=== PATIENT | female | born 1965 | race Caucasian/White ===

== ENCOUNTER 2018-11-30 17:37 | Emergency (ER) | payer OTHER, SELFPAY ==
[2018-11-30 17:43] VITALS: BP 119/85; PULSE 98; RESP 15; TEMP 36.4; O2SAT 96; BMI 31.2
--- NOTE | 2018-11-30 17:46 | DI.RAD.S_ITS ---
PROCEDURE: XR WRIST RT MIN 3V INDICATIONS: pain after fall 10 days ago TECHNIQUE: 3 views of the wrist were acquired. COMPARISON: None. FINDINGS: Bones: No fractures or dislocations. No suspicious bony lesions. Soft tissues: No suspicious soft tissue calcifications. IMPRESSION: No acute radiographic findings. If pain persists, consider advanced imaging with CT or MRI. Dictated by: Isa Velazquez M.D. on 11/30/2018 at 18:16 Approved by: Isa Velazquez M.D. on 11/30/2018 at 18:16
--- NOTE | 2018-11-30 17:46 | DI.RAD.S_ITS ---
PROCEDURE: XR FOREARM RT 2V INDICATIONS: pain after fall 10 days ago TECHNIQUE: 2 views of the forearm were acquired. COMPARISON: None. FINDINGS: Bones: No fractures or dislocations. No suspicious bony lesions. Soft tissues: No suspicious soft tissue calcifications or masses. IMPRESSION: No acute radiographic findings. If pain persists, consider advanced imaging with CT or MRI. Dictated by: Isa Velazquez M.D. on 11/30/2018 at 18:15 Approved by: Isa Velazquez M.D. on 11/30/2018 at 18:15
--- NOTE | 2018-11-30 18:10 | PC.NURSE ---
pt given pillow to rest arm on, refused ice pack
--- NOTE | 2018-11-30 19:09 | ED_ITS ---
HPI - Extremity Injury (Upper) <SUNITA Mccollum - Last Filed: 11/30/18 22:47> General Chief Complaint: Extremity Injury, Upper Stated Complaint: RT ARM PAIN Time Seen by Provider: 11/30/18 18:51 Source: patient Mode of arrival: ambulatory Limitations: no limitations History of Present Illness HPI narrative: This is a 53-year-old female, smoker, who presents with family member with chief complaint of right wrist and forearm pain with mild swelling. She reports she had a taken a mechanical fall about 10 days ago in outdoor and had FOOSH. Patient reports pain increases with flexion and extension of her wrist. She reports is able to move her fingers. Denies tingling or numbness to her right hand. Patient thought pain will improve as time goes by so did not seek medical attention immediately. The patient and family member are traveling with and they are from [place]. Patient reports will return to home in [facility] in about a month. Patient reports she does not do well hydrocodone or trauma tall in the past. Related Data Previous Rx's Medication Instructions Recorded oxycodone-acetaminophen [Percocet] 2 tab PO Q6H PRN #10 tab 11/30/18 Allergies Allergy/AdvReac Type Severity Reaction Status Date / Time Sulfa (Sulfonamide Allergy Verified 11/30/18 17:43 Antibiotics) Review of Systems <SUNITA Mccollum - Last Filed: 11/30/18 22:47> Review of Systems ROS Unobtainable: All systems reviewed & are unremarkable except as noted in HPI and below PFSH <SUNITA Mccollum - Last Filed: 11/30/18 22:47> Social History Smoking Status: Current every day smoker Social History Smoking Status: Current every day smoker Exam <SUNITA Mccollum - Last Filed: 11/30/18 22:47> Narrative Exam Narrative: General appearance: well developed, well nourished, in no acute distress. Head: normocephalic, atraumatic, no scalp lesions, non-tender. Eye: pupil equal, round. EOMI. Nose: nares patent. Oral: mucosa moist. Neck/Thyroid: neck supple, full range of motion, no visible masses. Skin: A dry scab on right dorsal hand. no suspicious rashes, lesions over visible areas. Warm and dry. Heart: no clubbing, no cyanosis, no edema. Lungs: Breathing even and unlabored. No stridor. No accessory muscles used. Chest: normal shape and expansion. Abdomen: non-obese, non-distended. Neurologic: alert and oriented. Cognitive exam, [employer] [place] and PNS grossly intact on informal exam. Psych: good eye contact, normal affect. Initial Vital Signs Initial Vital Signs: Vital Signs Temperature 97.6 F 11/30/18 17:43 Pulse Rate 98 H 11/30/18 17:43 Respiratory Rate 15 11/30/18 17:43 Blood Pressure 119/85 11/30/18 17:43 Pulse Oximetry 96 11/30/18 17:43 Extrem Right upper extremity: wrist Details: normal to inspection, tenderness, abnormal ROM Details: pain with active ROM during, pain with passive ROM during and with range as follows, normal vascular exam, radial pulse present and ulnar pulse present; no ecchymosis and no deformity and hand Details: normal to inspection, neuromotor exam abnormal Details: wrist extension abnormal Details: limited by pain, neurosensory exam normal, tenderness and normal ROM of fingers Left upper extremity: normal to inspection and full ROM Right lower extremity: normal to inspection and full ROM Left lower extremity: normal to inspection and full ROM <Yamilka Gutierrez DO - Last Filed: 12/01/18 00:56> Initial Vital Signs Initial Vital Signs: Vital Signs Temperature 97.6 F 11/30/18 17:43 Pulse Rate 98 H 11/30/18 17:43 Respiratory Rate 15 11/30/18 17:43 Blood Pressure 119/85 11/30/18 17:43 Pulse Oximetry 96 11/30/18 17:43 Procedures <SUNITA Mccollum - Last Filed: 11/30/18 22:47> Orthopedic Splinting/Casting Injury #1: Side: right Upper Extremity Injury Location: wrist Upper Extremity Immobilizer: thumb spica (prefabricated) Post splinting neuro exam: intact Post splinting vascular exam: intact Placed by: Nursing Course <SUNITA Mccollum - Last Filed: 11/30/18 22:47> Orders Ordered: ED Orders 11/30/18 17:46 XR forearm RT 2V Stat XR wrist RT min 3V Stat Vital Signs Vital signs: Vital Signs - 8 hr 11/30/18 17:43 11/30/18 19:34 Temperature 97.6 F Pulse Rate 98 H 68 Respiratory Rate 15 16 Blood Pressure 119/85 120/82 Pulse Oximetry 96 98 <Yamilka Gutierrez DO - Last Filed: 12/01/18 00:56> Orders Ordered: ED Orders 11/30/18 17:46 XR forearm RT 2V Stat XR wrist RT min 3V Stat Vital Signs Vital signs: Vital Signs - 8 hr 11/30/18 17:43 11/30/18 19:34 Temperature 97.6 F Pulse Rate 98 H 68 Respiratory Rate 15 16 Blood Pressure 119/85 120/82 Pulse Oximetry 96 98 MDM - Extremity Injury (Upper) <SUNITA Mccollum - Last Filed: 11/30/18 22:47> Differential Diagnosis Differential diagnosis: Likely sprain and strain of wrist and fracture of wrist Medical Records Attestation: I reviewed the patient's medical records. Imaging Data XR-Wrist RT: Radiologist's impression: [address] [address] XRay Report Signed Patient: RENAY GONZALEZ LMR#: [id number] : 1965Acct:[id number] Age/Sex: 53 / FDate of Service: 11/30/18 Loc: ED Accession Number: [id number] Procedure: XR wrist RT min 3V Ordering Provider: Tara Hamilton MD PROCEDURE: XR WRIST RT MIN 3V INDICATIONS: pain after fall 10 days ago TECHNIQUE: 3 views of the wrist were acquired. COMPARISON: None. FINDINGS: Bones: No fractures or dislocations. No suspicious bony lesions. Soft tissues: No suspicious soft tissue calcifications. IMPRESSION: No acute radiographic findings. If pain persists, consider advanced imaging with CT or MRI. Dictated by: Isa Velazquez M.D. on 11/30/2018 at 18:16 Approved by: Isa Velazquez M.D. on 11/30/2018 at 18:16 XR-FA RT: Radiologist's impression: [address] [address] XRay Report Signed Patient: RENAY GONZALEZ LMR#: [id number] : 1965Acct:[id number] Age/Sex: 53 / FDate of Service: 11/30/18 Loc: ED Accession Number: [id number] Procedure: XR forearm RT 2V Ordering Provider: Tara Hamilton MD PROCEDURE: XR FOREARM RT 2V INDICATIONS: pain after fall 10 days ago TECHNIQUE: 2 views of the forearm were acquired. COMPARISON: None. FINDINGS: Bones: No fractures or dislocations. No suspicious bony lesions. Soft tissues: No suspicious soft tissue calcifications or masses. IMPRESSION: No acute radiographic findings. If pain persists, consider advanced imaging with CT or MRI. Dictated by: Isa Velazquez M.D. on 11/30/2018 at 18:15 Approved by: Isa Velazquez M.D. on 11/30/2018 at 18:15 [facility] Narrative Medical decision making narrative: The patient reports had sustained a mechanical fall 10 days ago after fell on out stretched hand and since then she has been having right wrist and forearm pain with movements. Patient denies injuring other areas. She did not exhibit any neurovascular deficit. X-ray on right wrist and forearm were obtained and shows no acute findings such as fracture or dislocation. Patient reports she has been using pknz-khe-mikcqly ibuprofen and Tylenol every 4 hours as needed but the pain has not been controlled effectively. Patient reports she does not route react well to hydrocodone and tramadol in the past after surgeries. Patient advised to continue to use Tylenol and or Motrin as needed mainly use prefabricated splint on affected hand to prevent flexion or extension motion on affected wrist to prevent pain. Patient provided with Percocet for severe pain at night and to take 1 tab as needed and not to mix with additional Tylenol when she takes this. Narcotic pain medication precautions were discussed with the patient and patient verbalized understanding. Patient advised to follow up with primary care physician if her pain persists with additional imaging test and further evaluation. Return precautions were discussed with the patient and patient did agrees with treatment plan. No further questions were expressed at this time. Discharge Plan Departure Patient Disposition: Home Clinical Impression: Sprain and strain of wrist Clinical Impression: (Ruled Out): Fracture of humerus Discharge Date/Time: 11/30/18 19:36 Instructions: DI for Wrist Sprain Activity Restrictions/Additional Instructions: You have been diagnosed with [right wrist and forearm sprain. Your x-ray test does not show any acute findings such as fracture or dislocation. However if you're pain persists, your primary provider could arrange for further imaging test when you return your home]. What to do: *Take your medications as directed. The Percocet can cause drowsiness. Please do not take alcohol with that, drive, operate heavy equipment. Also he can cause constipation so please take high-fiber diet or [id number]-[id number] stool softener. The Percocet contains regular strength of Tylenol already. Please use ?RICE? therapy such as Rest, Ice, Compression/Spliint/Acewra, and Elevation above the chest level. Please try to avoid getting swelling to the affected site since this may cause increasing pain. You could use OTC Tylenol and or Ibuprofen as needed for pain. Please monitor for increasing pain, swelling, tingling/numbness, unable to move affected/below the injury site, cool limbs. *Follow up with your primary care provider in 2-3 days, call for an appointment. Let them know you were seen in the ED and that we asked you to be seen in follow up. *Return to ED if you have any new, worsening, or concerning symptoms, such as [tingling/numbness, weakness to lower limb, severe pain, chest pain, breathing difficulty, unable to tolerate fluids, or any other acute concerns]. Prescriptions: New oxycodone-acetaminophen [Percocet] 5-325 mg tablet 2 tab PO Q6H PRN (Reason: pain) Qty: 10 RF: 0 Referrals: [facility] [Outside] (Walk in clinic)
[2018-11-30 19:34] VITALS: BP 120/82; PULSE 68; RESP 16; O2SAT 98
== END 2018-11-30 19:36 | disposition home or self-care (01) ==
PROVIDERS: Emergency Provider Nurse Practitioner Family
DX: S63.501A Unspecified sprain of right wrist, initial encounter (principal); S66.911A Strain of unspecified muscle, fascia and tendon at wrist and hand level, right hand, initial encounter; W19.XXXA Unspecified fall, initial encounter
CPT/HCPCS: 29280; 73090; 73110; 99282; 99283

== ENCOUNTER 2019-08-23 12:46 | Emergency (ER) | payer SELFPAY ==
[2019-08-23 13:01] VITALS: BP 159/75; PULSE 79; RESP 16; TEMP 36.9; O2SAT 96; BMI 29.2
--- NOTE | 2019-08-23 13:05 | DI.RAD.S_ITS ---
PROCEDURE: XR HAND RT MIN 3V INDICATIONS: pain after hitting with box. TECHNIQUE: 3 views of the hand(s) acquired. COMPARISON: None. FINDINGS: Bones: No fractures or dislocations. Carpal bones are normally aligned. No suspicious bony lesions. Soft tissues: No suspicious soft tissue calcifications. IMPRESSION: No fracture found. Dictated by: Vinh Hernandez M.D. on 08/23/2019 at 13:55 Approved by: Vinh Hernandez M.D. on 08/23/2019 at 13:56
--- NOTE | 2019-08-23 13:10 | ED.UPPEXIN ---
HPI - Extremity Injury (Upper) <TAIWO Pinto - Last Filed: 08/23/19 14:56> General Chief Complaint: Extremity Injury, Upper Stated Complaint: Jammed right Hand while moving. Time Seen by Provider: 08/23/19 12:47 Source: patient Mode of arrival: Ambulatory Limitations: no limitations History of Present Illness HPI narrative: The patient is a 54-year-old female current smoker with history of diabetes who presents with a chief complaint of right finger hand and wrist pain. She states that she was lifting heavy boxes to help move approximately 1 week ago with 1 fell and jammed her right middle finger. Since then the pain has been getting worse and radiates down to her wrist. It is worse with movement. The patient states that she can flex or extend her fingers, while she is making fist with that hand. He has been using ibuprofen and Tylenol for pain, but states it is not helping. She started this 2 days ago. Prior she was just using Tylenol. She is not immobilized her wrist. She applied ice for the 1st day or so, but has not since. She is right-hand dominant. Denies any previous injuries to her right hand or wrist emergency department visit for right wrist and forearm pain in November of 2018. Related Data Previous Rx's Medication Instructions Recorded oxycodone-acetaminophen [Percocet] 2 tab PO Q6H PRN #10 tab 11/30/18 tramadol 50 mg PO Q8H PRN #7 tab 08/23/19 Allergies Allergy/AdvReac Type Severity Reaction Status Date / Time Sulfa (Sulfonamide Allergy Verified 08/23/19 13:01 Antibiotics) Review of Systems <TAIWO Pinto - Last Filed: 08/23/19 14:56> Review of Systems Narrative: GENERAL: Denies chills, fatigue, malaise, fever, sweats. HEENT: Denies sinus pain, ear pain, sore throat, difficulty swallowing, dizziness. RESPIRATORY: Denies dyspnea, cough, wheezing, hemoptysis, sputum. CARDIOVASCULAR: Denies chest pain, palpitations, orthopnea, edema, GASTROINTESTINAL: Denies nausea, vomiting, abdominal pain, diarrhea, constipation, melena. : Denies dysuria, frequency, incontinence, hematuria, urinary retention. MUSCULOSKELETAL: See HPI SKIN: Denies rash, skin lesions, or other NEUROLOGIC: Denies weakness, headache, numbness, change in speech, confusion, seizures, incoordination. PSYCHIATRIC: No concerning psychosocial issues. 12 point review of systems is negative except for those stated above Patient History <TAIWO Pinto - Last Filed: 08/23/19 14:56> Social History Smoking Status: Current every day smoker Smoking Status: Current every day smoker alcohol intake frequency: holidays/special occasions only Substance Use Type: does not use Exam <TAIWO Pinto - Last Filed: 08/23/19 14:56> Narrative Exam Narrative: GENERAL: This is a well-nourished, well-developed patient, in no acute distress HEAD: Atraumatic. Normocephalic. No temporal or scalp tenderness. EYES: Pupils equal round and reactive. Extraocular motions intact. No scleral icterus. No injection or drainage. ENT: Nose without bleeding, purulent drainage or septal hematoma. Throat without erythema, tonsillar hypertrophy or exudate. Uvula midline. Airway patent. NECK: Trachea midline. No JVD or lymphadenopathy. Supple, nontender, no meningeal signs. CARDIOVASCULAR: Regular rate and rhythm RESPIRATORY: No cough. No increased respiratory effort. No accessory muscle use. EXTREMITIES: Pain to palpation noted right middle finger. Able to flex and extend right middle finger fully. For refill less than 2 seconds. Positive right radial pulse. Able to flex and extend right wrist. No pain to snuffbox palpation right. BACK: Nontender without deformity or crepitance. No flank tenderness. NEURO: AOx3. SKIN: No rash or erythema on visible skin Initial Vital Signs Initial Vital Signs: Vital Signs Temperature 98.5 F 08/23/19 13:01 Pulse Rate 79 08/23/19 13:01 Respiratory Rate 16 08/23/19 13:01 Blood Pressure 159/75 H 08/23/19 13:01 Pulse Oximetry 96 08/23/19 13:01 <Rahul Esposito DO - Last Filed: 08/23/19 15:17> Initial Vital Signs Initial Vital Signs: Vital Signs Temperature 98.5 F 08/23/19 13:01 Pulse Rate 79 08/23/19 13:01 Respiratory Rate 16 08/23/19 13:01 Blood Pressure 159/75 H 08/23/19 13:01 Pulse Oximetry 96 08/23/19 13:01 Procedures <TAIWO Pinto - Last Filed: 08/23/19 14:56> Orthopedic Splinting/Casting Injury #1: Side: right Upper Extremity Injury Location: wrist and hand Upper Extremity Immobilizer: finger (other) and Negrito wrap Post splinting neuro exam: intact Post splinting vascular exam: intact Placed by: Nursing Course <TAIWO Pinto - Last Filed: 08/23/19 14:56> Orders Ordered: ED Orders 08/23/19 13:05 XR hand RT min 3V Stat Vital Signs Vital signs: Vital Signs - 8 hr 08/23/19 13:01 08/23/19 14:31 Temperature 98.5 F Pulse Rate 79 71 Respiratory Rate 16 18 Blood Pressure 159/75 H Blood Pressure [Left Arm] 108/67 Pulse Oximetry 96 94 <Rahul Esposito DO - Last Filed: 08/23/19 15:17> Orders Ordered: ED Orders 08/23/19 13:05 XR hand RT min 3V Stat Vital Signs Vital signs: Vital Signs - 8 hr 08/23/19 13:01 08/23/19 14:31 Temperature 98.5 F Pulse Rate 79 71 Respiratory Rate 16 18 Blood Pressure 159/75 H Blood Pressure [Left Arm] 108/67 Pulse Oximetry 96 94 MDM - Extremity Injury (Upper) <TAIWO Pinto - Last Filed: 08/23/19 14:56> Differential Diagnosis Differential diagnosis: Likely sprain and strain of wrist, fracture of wrist, finger sprain and fracture of hand Imaging Data Extremity x-ray #1: Radiologist's Impression: [address] [address] XRay Report Signed Patient: Kathie Perkins LMR#: [id number] : 1965Acct:[id number] Age/Sex: 54 / FDate of Service: 08/23/19 Loc: ED Accession Number: [id number] Procedure: XR hand RT min 3V Ordering Provider: Kate Chiang PROCEDURE: XR HAND RT MIN 3V INDICATIONS: pain after hitting with box. TECHNIQUE: 3 views of the hand(s) acquired. COMPARISON: None. FINDINGS: Bones: No fractures or dislocations. Carpal bones are normally aligned. No suspicious bony lesions. Soft tissues: No suspicious soft tissue calcifications. IMPRESSION: No fracture found. Dictated by: Vinh Hernandez M.D. on 08/23/2019 at 13:55 Approved by: Vinh Hernandez M.D. on 08/23/2019 at 13:56 [facility] Narrative Medical decision making narrative: The patient is a 54-year-old female who presents with a chief complaint of right middle finger and wrist pain after jamming it on a box while moving last week. She is neurovascularly intact her stay in the emergency department. X-ray shows no acute fractures. She has reassuring range of motion. I discussed at length rest ice compression elevation, gave her small prescription of tramadol, encouraged continued itdk-tfm-sspuldk measures. Discussed at length follow up with primary care provider, risk of occult fracture and coming back to the emergency department for any acute concerns such as decreased circulation. Patient and have no questions or concerns upon discharge and state understanding of return precautions as well as follow-up care. Discharge Plan Departure Patient Disposition: Home Clinical Impression: Sprain and strain of wrist Finger sprain Qualifiers: Encounter type: initial encounter Finger: middle finger Sprain of finger site: unspecified site Laterality: right Qualified Code(s): S63.612A - Unspecified sprain of right middle finger, initial encounter Discharge Date/Time: 08/23/19 14:47 Instructions: DI for Wrist Sprain, DI for Finger Sprain Activity Restrictions/Additional Instructions: As I discussed, your x-ray shows no acute fracture. This does not rule out a soft tissue injury such as a ligament or tendon injury. It is important that you follow up with primary care provider, especially if worsening or no improvement. There can be fractures that did not show up on initial x-ray. Please use rest ice compression elevation I [facility] You have been prescribed narcotic medications. While on these medications you cannot drive or operate heavy machinery. Additionally you cannot sign legal documents or perform any duties such as this. 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 Please come back to the emergency department for any acute concerns Prescriptions: New tramadol 50 mg tablet 50 mg PO Q8H PRN (Reason: pain) Qty: 7 RF: 0 No Action oxycodone-acetaminophen [Percocet] 5-325 mg tablet 2 tab PO Q6H PRN (Reason: pain) Qty: 10 RF: 0 Referrals: [facility] [Outside] <Rahul Esposito, DO - Last Filed: 08/23/19 15:17> Cosign ED Attending Cosignature Attestation: Dr Esposito Co-Sign Statement: I was available for consultation during this patient's emergency department visit. This chart is signed by myself for administrative purposes only. I did not have direct contact with this patient during this visit. They were seen independently by the APC.
[2019-08-23 14:31] VITALS: BP 108/67; PULSE 71; RESP 18; O2SAT 94
== END 2019-08-23 14:47 | disposition home or self-care (01) ==
PROVIDERS: Emergency Provider Nurse Practitioner Family
DX: S63.501A Unspecified sprain of right wrist, initial encounter (principal); S66.912A Strain of unspecified muscle, fascia and tendon at wrist and hand level, left hand, initial encounter; S63.612A Unspecified sprain of right middle finger, initial encounter; X50.0XXA Overexertion from strenuous movement or load, initial encounter
CPT/HCPCS: 73130; 99283

== ENCOUNTER 2020-11-09 23:00 | Emergency (ER) | payer OTHER, SELFPAY ==
[2020-11-09 23:12] VITALS: BP 126/59; PULSE 74; RESP 18; TEMP 37.1; O2SAT 95
== END 2020-11-10 00:16 | disposition left against medical advice (07) ==
PROVIDERS: Emergency Provider Emergency Medicine
CPT/HCPCS: 99281

== ENCOUNTER 2020-12-11 10:53 | Inpatient (IN) | payer OTHER, SELFPAY ==
[2020-12-11] VITALS (115 sets, daily range): BP systolic 116–215; BP diastolic 64–101; PULSE 83–172; RESP 17–48; TEMP 36.3–37.4; O2SAT 91–100
--- NOTE | 2020-12-11 10:59 | DI.RAD.S_ITS ---
PROCEDURE: XR CHEST 1V INDICATIONS: flu-like symptoms TECHNIQUE: One view of the chest was acquired. COMPARISON: [facility], CT, CT HEAD/BRAIN WO CON, 12/11/2020, 11:22. FINDINGS: Surgical changes and devices: None. Lungs and pleura: Mild generalized interstitial prominence can be seen. On this semiupright portable chest examination, no large pneumothorax or large pleural effusions are seen. Low lung volumes are noted. This causes a crowded appearance to the lung markings and limits evaluation. Mediastinum: Mediastinal contours appear normal. Heart size is moderately enlarged. Bones and chest wall: No suspicious bony lesions. Age-appropriate bony degenerative changes are seen. Overlying soft tissues appear unremarkable. IMPRESSION: Cardiomegaly and interstitial prominence. Please correlate with patient presentation, physical examination findings, and laboratory values for congestive heart failure. However, given the flu-like symptoms, please consider atypical infiltrate, including COVID pneumonia. Dictated by: Milton Ferrer M.D. on 12/11/2020 at 10:46 Approved by: Milton Ferrer M.D. on 12/11/2020 at 10:47
--- NOTE | 2020-12-11 11:07 | DI.CT.S_ITS ---
PROCEDURE: CT HEAD/BRAIN WO CON INDICATIONS: Altered mental status TECHNIQUE: Noncontrast 4.5 mm thick angled axial sections acquired from the foramen magnum to the vertex, with coronal and sagittal reformats. For radiation dose reduction, the following was used: automated exposure control, adjustment of mA and/or kV according to patient size. COMPARISON: None. FINDINGS: Image quality: Excellent. CSF spaces: Basal cisterns are patent. No extra-axial fluid collections. Ventricles are normal in size and shape. Brain: There is a subtle nodular density in the left occipital lobe with peripheral hypodense halo. No midline shift. No intracranial masses or hemorrhage. Paul-white matter interface is normal. Skull and face: Calvarium and visualized facial bones are intact, without suspicious lesions. Sinuses: Visualized sinuses and mastoids are clear. IMPRESSION: There is a subtle nodular density in the left occipital lobe with peripheral hypodense halo suggesting mild vasogenic edema. Alternatively, the appearance could be caused an artifact. Recommend MRI with and without contrast for follow-up evaluation. The result was discussed with Dr. Esposito. Dictated by: Malini Greenwood M.D. on 12/11/2020 at 11:43 Approved by: Malini Greenwood M.D. on 12/11/2020 at 11:49
[2020-12-11 11:09] LABS: Add Manual Diff / Slide Review NO; Basophils Absolute Auto 0 /uL (0-100); Basophils Percent Auto 0.4 % (0-2); Eosinophils Absolute Auto 0 /uL (0-450); Hematocrit 41.4 % (36-46); Hemoglobin 13.8 g/dL (12.0-16.0); Lymphocytes Absolute Auto 600 /uL (1100-4500); Lymphocytes Percent Auto 15.9 % (25-40); Mean Corpuscular HGB Conc 33.3 % (30-36); Mean Corpuscular Hemoglobin 30.4 PG (26-34); Mean Corpuscular Volume 91.1 fL (80-100); Monocytes Absolute Auto 400 /uL (0-900); Monocytes Percent Auto 10.4 % (3-14); Neutrophils Absolute Auto 2600 /uL (1500-7000); Neutrophils Percent Auto 73.3 % (50-75); Platelet Count 97 X10^3/uL (150-400); Red Blood Cell Count 4.55 X10^6/uL (4.0-5.2); Red Cell Distribution Width 13.9 % (11.6-14.8); White Blood Cell Count 3.5 X10^3/uL (4.5-11.0)
--- NOTE | 2020-12-11 11:13 | ED_ITS ---
HPI - General Adult <Rahul Esposito DO - Last Filed: 12/12/20 17:50> General Chief complaint: Unresponsive Stated complaint: Altered mental status,t-4 days,>400 BG,COVID? Time Seen by Provider: 12/11/20 11:06 Source: EMS Mode of arrival: EMS Limitations: altered mental status History of Present Illness HPI narrative: Patient is a 55-year-old female who was brought in by EMS for evaluation of altered mental status, temperature, elevated blood sugar and potential COVID. It is reported that the patient is under immunized against COVID. Patient's has a known positive resolved recently. Patient is unable to provide any HPI. It was reported that potentially the patient has bee n altered for the past 3 or 4 days. Unsure as to whether not it is been to the degree that the patient presented with today. EMS reports that her blood sugar is greater than 400. Related Data Home Medications Medication Instructions Recorded Confirmed methadone 10 mg tablet mg 12/11/20 Previous Rx's Medication Instructions Recorded oxycodone-acetaminophen 5 mg-325 2 tab PO Q6H PRN #10 tab 11/30/18 mg tablet (Percocet) tramadol 50 mg tablet 50 mg PO Q8H PRN #7 tab 08/23/19 Allergies Allergy/AdvReac Type Severity Reaction Status Date / Time Iodine and Iodide Containing Allergy Rash Verified 12/11/20 12:11 Produc Sulfa (Sulfonamide Allergy Verified 12/11/20 11:27 Antibiotics) Review of Systems <DO Cortney Stanley Last Filed: 12/12/20 17:50> Review of Systems ROS Unobtainable: Unobtainable due to mental condition Patient History <DO Cortney Stanley Last Filed: 12/12/20 17:50> Medical History Diabetes DVT (deep venous thrombosis) Nasal sinus tumor Social History household members: spouse Smoking Status: Current every day smoker Smoking Status: Current every day smoker alcohol intake frequency: holidays/special occasions only Substance Use Type: does not use Exam <DO Cortney Stanley Last Filed: 12/12/20 17:50> Initial Vital Signs Initial Vital Signs: Vital Signs Pulse Rate 83 12/11/20 10:50 Respiratory Rate 28 H 12/11/20 10:50 Pulse Oximetry 93 12/11/20 10:50 Const General: well developed, No combative, diaphoretic and disheveled HENNC Head: normal to inspection and normocephalic Face and sinus: normal facial exam Eyes General: appearance normal, both eyes and all related structures Pupils: PERRL Neck Neck: normal visual inspection Chest Chest: No crepitus Resp Effort & Inspection: cough, not labored and tachypneic Auscultation: clear to auscultation bilaterally Cardio Rate: regular rate Rhythm: regular rhythm GI Inspection: normal to inspection Palpation: soft and No firm Rectal Exam: heme positive stool External Female Exam: normal external appearance Skin General: no rashes or lesions noted Neuro General: moves all extremities Cognition: abnormal cognition Speech: other (No verbal response) Motor: other (Moves all 4 extremities spontaneously however not to command) Extrem General: capillary refill normal and No edema Psych Appearance: disheveled <Piyush Whitney MD - Last Filed: 12/14/20 16:44> Initial Vital Signs Initial Vital Signs: Vital Signs Pulse Rate 83 12/11/20 10:50 Respiratory Rate 28 H 12/11/20 10:50 Pulse Oximetry 93 12/11/20 10:50 Scores <Rahul Esposito DO - Last Filed: 12/12/20 17:50> GCS [place] coma scale eye opening: Spontaneous Vandana coma scale verbal response: Sounds Vandana coma scale motor response: Normal flexion Vandana coma scale total score: 10 <Piyush Whitney MD - Last Filed: 12/14/20 16:44> GCS Vandana coma scale total score: 10 Course <Rahul Esposito DO - Last Filed: 12/12/20 17:50> Orders Ordered: Discontinued Medications Acetaminophen (Acetaminophen 650 Mg Supp) 650 mg VT NOW ONE Stop: 12/12/20 03:04 Last Admin: 12/12/20 03:08 Dose: 650 mg Documented by: CASIE Acetaminophen (Acetaminophen 650 Mg Supp) 650 mg VT NOW ONE Stop: 12/12/20 11:16 Last Admin: 12/12/20 11:06 Dose: 650 mg Documented by: JM Acetaminophen (Acetaminophen 650 Mg Supp) 650 mg VT Q4HR PRN PRN Reason: Fever/Mild Pain (1-3) Last Admin: 12/12/20 22:08 Dose: 650 mg Documented by: TITI Artificial Tears (Polyvinyl Alcohol Drops) 1 drops EYE-BOTH Q2HR PRN PRN Reason: Dry Eye(s) Last Admin: 12/13/20 02:56 Dose: 1 drop Documented by: Admin: 12/12/20 18:31 Dose: 1 drop Documented by: TITI Aspirin (Aspirin 300 Mg Supp) 300 mg VT NOW ONE Stop: 12/11/20 12:12 Last Admin: 12/11/20 12:28 Dose: 300 mg Documented by: SARAH Atropine Sulfate (Atropine 1% Ophth) 2 drops SL Q2HR PRN PRN Reason: Secretions Last Admin: 12/13/20 02:56 Dose: 2 drops Documented by: Admin: 12/12/20 18:31 Dose: 2 drops Documented by: TITI Dexamethasone (Dexamethasone 10 Mg/Ml Vial) 10 mg IV NOW ONE Stop: 12/11/20 12:10 Last Admin: 12/11/20 12:25 Dose: 10 mg Documented by: SARAH Dexamethasone (Dexamethasone 10 Mg/Ml Vial) 6 mg IV NOW ONE Stop: 12/12/20 12:31 Last Admin: 12/12/20 12:10 Dose: 6 mg Documented by: JERMAINE Diazepam (Diazepam 10 Mg/2 Ml Syringe) 5 mg IV NOW ONE Stop: 12/12/20 00:23 Last Admin: 12/12/20 00:27 Dose: 5 mg Documented by: KANDACE Furosemide (Furosemide 40 Mg/4 Ml Vial) 40 mg IV NOW ONE Stop: 12/11/20 19:19 Last Admin: 12/11/20 19:26 Dose: 40 mg Documented by: KANDACE Furosemide (Furosemide 40 Mg/4 Ml Vial) 40 mg IV NOW ONE Stop: 12/12/20 05:21 Last Admin: 12/12/20 05:30 Dose: 40 mg Documented by: MARY LOU Sodium Chloride (Normal Saline 0.9%) 1,000 mls @ 1,000 mls/hr IV BOLUS ONE Stop: 12/11/20 12:06 Last Infusion: 12/11/20 12:30 Dose: 0 mls/hr Documented by: Admin: 12/11/20 11:18 Dose: 1,000 mls/hr Documented by: CAMPBELL Ceftriaxone Sodium 1,000 mg/ (Sodium Chloride) 100 mls @ 200 mls/hr IV NOW ONE Stop: 12/11/20 11:09 Last Infusion: 12/11/20 12:57 Dose: 0 mls/hr Documented by: Admin: 12/11/20 12:25 Dose: 200 mls/hr Documented by: SARAH Vancomycin HCl (Vancomycin) 1,000 mg in 200 mls @ 200 mls/hr IV NOW ONE Stop: 12/11/20 12:07 Last Infusion: 12/11/20 12:29 Dose: 0 mls/hr Documented by: Admin: 12/11/20 11:19 Dose: 200 mls/hr Documented by: CAMPBELL Remdesivir 200 mg/ Sodium (Chloride) 250 mls @ 250 mls/hr IV NOW ONE Stop: 12/11/20 12:10 Last Infusion: 12/11/20 14:41 Dose: 0 mls/hr Documented by: Admin: 12/11/20 12:50 Dose: 250 mls/hr Documented by: SARAH Sodium Chloride (Normal Saline 0.9%) 1,000 mls @ 125 mls/hr IV CONT DANIEL Last Infusion: 12/12/20 12:41 Dose: 0 mls/hr Documented by: Infusion: 12/11/20 15:16 Dose: 0 mls/hr Documented by: Admin: 12/11/20 12:30 Dose: 125 mls/hr Documented by: SARAH Levetiracetam 1,000 mg/ Sodium (Chloride) 110 mls @ 440 mls/hr IV NOW ONE Stop: 12/12/20 00:40 Last Infusion: 12/12/20 01:14 Dose: 0 mls/hr Documented by: Admin: 12/12/20 00:47 Dose: 440 mls/hr Documented by: CASIE Acetaminophen (Ofirmev) 1,000 mg in 100 mls @ 400 mls/hr IV NOW ONE Stop: 12/12/20 05:09 Last Infusion: 12/12/20 05:38 Dose: 0 mls/hr Documented by: Admin: 12/12/20 05:10 Dose: 400 mls/hr Documented by: CASIE INSULIN DRIP PREMIX (Myxredlin Drip Premix) 100 unit in 100 mls @ 6 mls/hr IV TITRATE DANIEL; Protocol Last Titration: 12/12/20 12:38 Dose: 0 mls/hr, 0 mls/hr Documented by: JERMAINE Cosigned by: CTR.HANDER Titration: 12/12/20 12:13 Dose: 6 mls/hr, 6 mls/hr Documented by: JERMAINE Cosigned by: MARGARITA Titration: 12/12/20 11:30 Dose: 6.5 mls/hr, 6.5 mls/hr Documented by: CTR.HANDER Cosigned by: ANDRE Titration: 12/12/20 09:30 Dose: 6.7 mls/hr, 6.7 mls/hr Documented by: CTR.HANDER Cosigned by: EVELIA Titration: 12/12/20 08:15 Dose: 6 mls/hr, 6 mls/hr Documented by: CTR.HANDER Cosigned by: CASIE Titration: 12/12/20 08:13 Dose: 11 mls/hr, 11 mls/hr Documented by: CTR.HANDER Cosigned by: CASIE Admin: 12/12/20 06:17 Dose: 6 mls/hr, 6 mls/hr Documented by: CASIE Cosigned by: MARY LOU POTASSIUM CHLORIDE IN WATER (Potassium Cl 10 Meq/100 Ml Chrissy) 10 meq in 100 mls @ 100 mls/hr IV Q1H DANIEL Stop: 12/12/20 07:59 Last Infusion: 12/12/20 11:22 Dose: 0 mls/hr Documented by: CTR.HANDER Admin: 12/12/20 07:41 Dose: 100 mls/hr Documented by: Infusion: 12/12/20 07:40 Dose: 0 mls/hr Documented by: Admin: 12/12/20 06:17 Dose: 100 mls/hr Documented by: CASIE Sodium Chloride (Normal Saline 0.45%) 1,000 mls @ 125 mls/hr IV CONT DANIEL Last Admin: 12/12/20 06:16 Dose: 125 mls/hr Documented by: CASIE Ceftriaxone Sodium 1,000 mg/ (Sodium Chloride) 100 mls @ 200 mls/hr IV NOW ONE Stop: 12/12/20 12:31 Last Infusion: 12/12/20 12:40 Dose: 0 mls/hr Documented by: Admin: 12/12/20 12:09 Dose: 200 mls/hr Documented by: JERMAINE Remdesivir 100 mg/ Sodium (Chloride) 250 mls @ 250 mls/hr IV 1200 DANIEL Stop: 12/20/20 12:59 Last Infusion: 12/12/20 13:00 Dose: 0 mls/hr Documented by: Admin: 12/12/20 11:51 Dose: 250 mls/hr Documented by: JM POTASSIUM CHLORIDE IN WATER (Potassium Cl 10 Meq/100 Ml Chrissy) 10 meq in 100 mls @ 100 mls/hr IV Q1H DANIEL Stop: 12/12/20 09:44 Last Infusion: 12/12/20 11:10 Dose: 0 mls/hr Documented by: Admin: 12/12/20 10:03 Dose: 100 mls/hr Documented by: Infusion: 12/12/20 10:03 Dose: 100 mls/hr Documented by: Admin: 12/12/20 09:03 Dose: 100 mls/hr Documented by: JM Vancomycin HCl/Dextrose (Vancomycin) 1,500 mg in 300 mls @ 200 mls/hr IV NOW ONE Stop: 12/12/20 10:59 Last Infusion: 12/12/20 11:52 Dose: 0 mls/hr Documented by: Admin: 12/12/20 10:05 Dose: 200 mls/hr Documented by: JM Sodium Chloride (Normal Saline 0.9%) 250 mls @ 21 mls/hr IV Q24H PRN PRN Reason: Flush Last Admin: 12/13/20 00:18 Dose: 21 mls/hr Documented by: IMTIAZ Morphine Sulfate 50 mg/ (Dextrose) 50 mls @ 5 mls/hr IV TITRATE DANIEL; Protocol Last Admin: 12/13/20 16:29 Dose: 7 mg/hr, 7 mls/hr Documented by: Titration: 12/13/20 16:29 Dose: 7 mg/hr, 7 mls/hr Documented by: Titration: 12/13/20 14:20 Dose: 7 mg/hr, 7 mls/hr Documented by: Titration: 12/13/20 13:09 Dose: 6 mg/hr, 6 mls/hr Documented by: Titration: 12/13/20 12:00 Dose: 6 mg/hr, 6 mls/hr Documented by: Admin: 12/13/20 07:59 Dose: 5 mg/hr, 5 mls/hr Documented by: JULIANN Insulin Human Regular (Insulin Regular 100 Unit/Ml 3 Ml Vial) 15 unit IV NOW ONE Stop: 12/12/20 04:58 Last Admin: 12/12/20 05:10 Dose: 15 unit Documented by: CASIE Cosigned by: MARY LOU Labetalol HCl (Labetalol 20 Mg/4 Ml Syringe) 5 mg IV NOW ONE Stop: 12/11/20 19:59 Last Admin: 12/11/20 20:11 Dose: 5 mg Documented by: KANDACE Lorazepam (Lorazepam 2 Mg/Ml Inj) 0.5 mg IV NOW ONE Stop: 12/11/20 14:48 Last Admin: 12/11/20 14:52 Dose: 0.5 mg Documented by: KANDACE Lorazepam (Lorazepam 2 Mg/Ml Inj) 1 mg IV NOW ONE Stop: 12/11/20 22:49 Last Admin: 12/11/20 22:50 Dose: 1 mg Documented by: KANDACE Lorazepam (Lorazepam 2 Mg/Ml Inj) 1 mg IV Q1HR PRN PRN Reason: Agitation/Anxiety Last Admin: 12/13/20 16:29 Dose: 1 mg Documented by: Admin: 12/13/20 14:15 Dose: 1 mg Documented by: Admin: 12/13/20 12:48 Dose: 1 mg Documented by: Admin: 12/13/20 06:24 Dose: 1 mg Documented by: Admin: 12/13/20 02:20 Dose: 1 mg Documented by: IMTIAZ Morphine Sulfate (Morphine 2 Mg/Ml Inj) 2 mg IV Q30MIN PRN PRN Reason: Pain/Dyspnea Last Admin: 12/12/20 14:40 Dose: 2 mg Documented by: RENZO Morphine Sulfate (Morphine 2 Mg/Ml Inj) 4 mg IV Q30MIN PRN PRN Reason: Pain/Dyspnea Last Admin: 12/12/20 18:30 Dose: 4 mg Documented by: Admin: 12/12/20 16:54 Dose: 4 mg Documented by: TITI Morphine Sulfate (Morphine 4 Mg/Ml Inj) 4 mg IV Q30MIN PRN PRN Reason: Pain/Dyspnea Last Admin: 12/13/20 04:48 Dose: 4 mg Documented by: Admin: 12/13/20 02:57 Dose: 4 mg Documented by: Admin: 12/13/20 00:18 Dose: 4 mg Documented by: Admin: 12/12/20 22:09 Dose: 4 mg Documented by: Admin: 12/12/20 21:13 Dose: 4 mg Documented by: Admin: 12/12/20 20:08 Dose: 4 mg Documented by: Admin: 12/12/20 19:23 Dose: 4 mg Documented by: TITI Naloxone HCl (Naloxone 1 Mg/Ml Syringe) 2 mg NASAL NOW ONE Stop: 12/11/20 12:14 Last Admin: 12/11/20 12:29 Dose: 2 mg Documented by: SARAH Nitroglycerin (Nitroglycerin Oint 1 Inch/Gm Oint...G.) 0.5 inch TOP NOW ONE Stop: 12/11/20 17:31 Last Admin: 12/11/20 17:32 Dose: 0.5 inch Documented by: KANDACE Ondansetron HCl (Ondansetron 4 Mg/2 Ml Inj) 4 mg IV Q4HR PRN PRN Reason: Nausea And Vomiting Phenobarbital (Phenobarbital 65 Mg/Ml Vial) 65 mg IV NOW ONE Stop: 12/12/20 01:52 Last Admin: 12/12/20 02:58 Dose: 65 mg Documented by: CASIE Scopolamine (Scopolamine 1 Patch) 1 patch TOP Q72H PRN PRN Reason: Secretions Last Admin: 12/12/20 14:39 Dose: 1 patch Documented by: RENZO Sodium Chloride (Sodium Chloride 0.9% Flush) 10 ml IV PRN PRN PRN Reason: Flush Last Admin: 12/13/20 06:24 Dose: 10 ml Documented by: Admin: 12/13/20 02:57 Dose: 10 ml Documented by: Admin: 12/13/20 00:17 Dose: 10 ml Documented by: IMTIAZ Sodium Chloride (Sodium Chloride 0.9% Flush) 10 ml IV BID DANIEL Last Admin: 12/13/20 22:15 Dose: Not Given Documented by: Admin: 12/13/20 12:16 Dose: Not Given Documented by: JULIANN Vancomycin HCl (Vancomycin Per Pharmacy) 1 request [facility] [place] NOW ONE Stop: 12/12/20 07:28 Last Admin: 12/12/20 10:16 Dose: Not Given Documented by: JM Vancomycin HCl (Vancomycin Trough) 1 request [facility] [place] [address] [facility] Vital Signs Vital signs: Vital Signs - 8 hr 12/12/20 09:47 12/12/20 10:00 12/12/20 10:15 Temperature 102.4 F H 102.4 F H Pulse Rate 104 H 107 H 109 H Respiratory Rate 41 H 44 H 49 H Blood Pressure 124/77 121/65 Pulse Oximetry 97 94 94 12/12/20 10:16 12/12/20 10:30 12/12/20 10:45 Temperature 102 F H 102.2 F H Pulse Rate 105 H 103 H Respiratory Rate 48 H 15 Blood Pressure 132/68 Pulse Oximetry 94 95 12/12/20 11:00 12/12/20 11:06 12/12/20 11:15 Temperature 103.3 F H 103 F H 103.8 F H Pulse Rate 100 H 100 H Respiratory Rate 40 H 42 H Blood Pressure 120/72 Pulse Oximetry 96 95 12/12/20 11:30 12/12/20 11:45 12/12/20 12:00 Temperature 103.8 F H 103.8 F H 103.8 F H Pulse Rate 99 H 101 H 108 H Respiratory Rate 48 H 48 H 50 H Blood Pressure 115/68 139/80 Pulse Oximetry 96 96 96 12/12/20 12:06 12/12/20 12:10 12/12/20 12:15 Temperature 103.8 F H 104.0 F H Pulse Rate 101 H 108 H Respiratory Rate 46 H 48 H Blood Pressure Pulse Oximetry 93 95 12/12/20 12:30 12/12/20 12:45 12/12/20 13:00 Temperature 103.8 F H 103.8 F H 103.8 F H Pulse Rate 104 H 101 H 97 H Respiratory Rate 42 H 48 H 37 H Blood Pressure 123/73 117/67 Pulse Oximetry 93 93 93 12/12/20 13:08 12/12/20 13:15 Temperature 103.6 F H Pulse Rate 101 H 98 H Respiratory Rate 46 H 36 H Blood Pressure Pulse Oximetry 94 94 <Piyush Whitney MD - Last Filed: 12/14/20 16:44> Course Course Narrative: 7:00 p.m.. Sign-out from Dr Esposito, he has been speaking with [facility] neurology for transfer. Patient has had extensive workup here. Requiring neurology services to continue for evaluation and treatment. Awaiting callback from [facility] to accept patient [phone]. [facility] transfer center did call back and will accept patient under neurology services providing room availability. 10:50 p.m.. Witnessed seizure, bilateral limb movement generalize tonic clonic. There was posturing of the arms. Patient did respond with Ativan and Valium. Vital signs noted. Patient placed on high-flow oxygen. 5:52 a.m.. I spoke with patient's son, Colton, patient has history of diabetes and lupus. Had craniotomy for brain tumor less than 5 years ago. Patient and are here visiting as a usually do during the summer months. They are from [place]. There are medical records at [facility] we can try calling to get more information. Patient actually lives in [place] all the rest of the year. Patient had been sick at home for a few days prior to arriving here. He states father has brain injury and unable to make appropriate decisions at times. Son does not want father to make medical decisions as he is capable due to brain injury. Son would like to be informed and updated and he will convey the rest of the information to the rest of the family. Son understands patient is in critical condition. However he also understands there are no beds available to transfer at this time. We are doing our best to maintain treatment with the resources we have. At this time, son indicates she is full code. While on phone, nurse spoke with , he is unable to provide any medical information or resources in [place]. 6:00 a.m.. At this time I believe we need to treat DKA. However patient does have worsening COVID pneumonia complicated by developing CHF. Will need to cautiously give IV fluids for DKA at the same time not to cause pulmonary edema/CHF exacerbation. Insulin drip started with supplemental potassium to prevent hypokalemia. Ketones are elevated. Family understands no heparin despite troponin being elevated/non-STEMI. Patient is Hemoccult positive. Patient is on high-flow an ABG was completed. However ABG does not show acidosis but may have respiratory compensation with work of breathing/tachypnea. Son does not want ventilator support at this time as she is well supported with high-flow. Troponin elevation likely due to cardiac demand from COVID pneumonia. Given fever and respiration and COVID positive, chest x-ray likely reflects pneumonia. MRI of the brain still needs to be evaluated further by Neurology, [facility] neurology has reviewed the MRI and we are still waiting for transfer. There are no beds available at all in [facility]. [facility] unable to find a bed Orders Ordered: Discontinued Medications Acetaminophen (Acetaminophen 650 Mg Supp) 650 mg VT NOW ONE Stop: 12/12/20 03:04 Last Admin: 12/12/20 03:08 Dose: 650 mg Documented by: CASIE Acetaminophen (Acetaminophen 650 Mg Supp) 650 mg VT NOW ONE Stop: 12/12/20 11:16 Last Admin: 12/12/20 11:06 Dose: 650 mg Documented by: JM Acetaminophen (Acetaminophen 650 Mg Supp) 650 mg VT Q4HR PRN PRN Reason: Fever/Mild Pain (1-3) Last Admin: 12/12/20 22:08 Dose: 650 mg Documented by: TITI Artificial Tears (Polyvinyl Alcohol Drops) 1 drops EYE-BOTH Q2HR PRN PRN Reason: Dry Eye(s) Last Admin: 12/13/20 02:56 Dose: 1 drop Documented by: Admin: 12/12/20 18:31 Dose: 1 drop Documented by: TITI Aspirin (Aspirin 300 Mg Supp) 300 mg VT NOW ONE Stop: 12/11/20 12:12 Last Admin: 12/11/20 12:28 Dose: 300 mg Documented by: SARAH Atropine Sulfate (Atropine 1% Ophth) 2 drops SL Q2HR PRN PRN Reason: Secretions Last Admin: 12/13/20 02:56 Dose: 2 drops Documented by: Admin: 12/12/20 18:31 Dose: 2 drops Documented by: TITI Dexamethasone (Dexamethasone 10 Mg/Ml Vial) 10 mg IV NOW ONE Stop: 12/11/20 12:10 Last Admin: 12/11/20 12:25 Dose: 10 mg Documented by: SARAH Dexamethasone (Dexamethasone 10 Mg/Ml Vial) 6 mg IV NOW ONE Stop: 12/12/20 12:31 Last Admin: 12/12/20 12:10 Dose: 6 mg Documented by: JERMAINE Diazepam (Diazepam 10 Mg/2 Ml Syringe) 5 mg IV NOW ONE Stop: 12/12/20 00:23 Last Admin: 12/12/20 00:27 Dose: 5 mg Documented by: KANDACE Furosemide (Furosemide 40 Mg/4 Ml Vial) 40 mg IV NOW ONE Stop: 12/11/20 19:19 Last Admin: 12/11/20 19:26 Dose: 40 mg Documented by: KANDACE Furosemide (Furosemide 40 Mg/4 Ml Vial) 40 mg IV NOW ONE Stop: 12/12/20 05:21 Last Admin: 12/12/20 05:30 Dose: 40 mg Documented by: MARY LOU Sodium Chloride (Normal Saline 0.9%) 1,000 mls @ 1,000 mls/hr IV BOLUS ONE Stop: 12/11/20 12:06 Last Infusion: 12/11/20 12:30 Dose: 0 mls/hr Documented by: Admin: 12/11/20 11:18 Dose: 1,000 mls/hr Documented by: CAMPBELL Ceftriaxone Sodium 1,000 mg/ (Sodium Chloride) 100 mls @ 200 mls/hr IV NOW ONE Stop: 12/11/20 11:09 Last Infusion: 12/11/20 12:57 Dose: 0 mls/hr Documented by: Admin: 12/11/20 12:25 Dose: 200 mls/hr Documented by: SARAH Vancomycin HCl (Vancomycin) 1,000 mg in 200 mls @ 200 mls/hr IV NOW ONE Stop: 12/11/20 12:07 Last Infusion: 12/11/20 12:29 Dose: 0 mls/hr Documented by: Admin: 12/11/20 11:19 Dose: 200 mls/hr Documented by: CAMPBELL Remdesivir 200 mg/ Sodium (Chloride) 250 mls @ 250 mls/hr IV NOW ONE Stop: 12/11/20 12:10 Last Infusion: 12/11/20 14:41 Dose: 0 mls/hr Documented by: Admin: 12/11/20 12:50 Dose: 250 mls/hr Documented by: SARAH Sodium Chloride (Normal Saline 0.9%) 1,000 mls @ 125 mls/hr IV CONT DANIEL Last Infusion: 12/12/20 12:41 Dose: 0 mls/hr Documented by: Infusion: 12/11/20 15:16 Dose: 0 mls/hr Documented by: Admin: 12/11/20 12:30 Dose: 125 mls/hr Documented by: SARAH Levetiracetam 1,000 mg/ Sodium (Chloride) 110 mls @ 440 mls/hr IV NOW ONE Stop: 12/12/20 00:40 Last Infusion: 12/12/20 01:14 Dose: 0 mls/hr Documented by: Admin: 12/12/20 00:47 Dose: 440 mls/hr Documented by: CASIE Acetaminophen (Ofirmev) 1,000 mg in 100 mls @ 400 mls/hr IV NOW ONE Stop: 12/12/20 05:09 Last Infusion: 12/12/20 05:38 Dose: 0 mls/hr Documented by: Admin: 12/12/20 05:10 Dose: 400 mls/hr Documented by: CASIE INSULIN DRIP PREMIX (Myxredlin Drip Premix) 100 unit in 100 mls @ 6 mls/hr IV TITRATE DANIEL; Protocol Last Titration: 12/12/20 12:38 Dose: 0 mls/hr, 0 mls/hr Documented by: JERMAINE Cosigned by: JM Titration: 12/12/20 12:13 Dose: 6 mls/hr, 6 mls/hr Documented by: JERMAINE Cosigned by: MARGARITA Titration: 12/12/20 11:30 Dose: 6.5 mls/hr, 6.5 mls/hr Documented by: JM Cosigned by: ANDRE Titration: 12/12/20 09:30 Dose: 6.7 mls/hr, 6.7 mls/hr Documented by: JM Cosigned by: EVELIA Titration: 12/12/20 08:15 Dose: 6 mls/hr, 6 mls/hr Documented by: JM Cosigned by: CASIE Titration: 12/12/20 08:13 Dose: 11 mls/hr, 11 mls/hr Documented by: JM Cosigned by: CASIE Admin: 12/12/20 06:17 Dose: 6 mls/hr, 6 mls/hr Documented by: CASIE Cosigned by: MARY LOU POTASSIUM CHLORIDE IN WATER (Potassium Cl 10 Meq/100 Ml Chrissy) 10 meq in 100 mls @ 100 mls/hr IV Q1H DANIEL Stop: 12/12/20 07:59 Last Infusion: 12/12/20 11:22 Dose: 0 mls/hr Documented by: Admin: 12/12/20 07:41 Dose: 100 mls/hr Documented by: Infusion: 12/12/20 07:40 Dose: 0 mls/hr Documented by: Admin: 12/12/20 06:17 Dose: 100 mls/hr Documented by: CASIE Sodium Chloride (Normal Saline 0.45%) 1,000 mls @ 125 mls/hr IV CONT DANIEL Last Admin: 12/12/20 06:16 Dose: 125 mls/hr Documented by: CASIE Ceftriaxone Sodium 1,000 mg/ (Sodium Chloride) 100 mls @ 200 mls/hr IV NOW ONE Stop: 12/12/20 12:31 Last Infusion: 12/12/20 12:40 Dose: 0 mls/hr Documented by: Admin: 12/12/20 12:09 Dose: 200 mls/hr Documented by: JERMAINE Remdesivir 100 mg/ Sodium (Chloride) 250 mls @ 250 mls/hr IV 1200 DANIEL Stop: 12/20/20 12:59 Last Infusion: 12/12/20 13:00 Dose: 0 mls/hr Documented by: Admin: 12/12/20 11:51 Dose: 250 mls/hr Documented by: JM POTASSIUM CHLORIDE IN WATER (Potassium Cl 10 Meq/100 Ml Chrissy) 10 meq in 100 mls @ 100 mls/hr IV Q1H DANIEL Stop: 12/12/20 09:44 Last Infusion: 12/12/20 11:10 Dose: 0 mls/hr Documented by: Admin: 12/12/20 10:03 Dose: 100 mls/hr Documented by: Infusion: 12/12/20 10:03 Dose: 100 mls/hr Documented by: Admin: 12/12/20 09:03 Dose: 100 mls/hr Documented by: JM Vancomycin HCl/Dextrose (Vancomycin) 1,500 mg in 300 mls @ 200 mls/hr IV NOW ONE Stop: 12/12/20 10:59 Last Infusion: 12/12/20 11:52 Dose: 0 mls/hr Documented by: Admin: 12/12/20 10:05 Dose: 200 mls/hr Documented by: JM Sodium Chloride (Normal Saline 0.9%) 250 mls @ 21 mls/hr IV Q24H PRN PRN Reason: Flush Last Admin: 12/13/20 00:18 Dose: 21 mls/hr Documented by: IMTIAZ Morphine Sulfate 50 mg/ (Dextrose) 50 mls @ 5 mls/hr IV TITRATE DANIEL; Protocol Last Admin: 12/13/20 16:29 Dose: 7 mg/hr, 7 mls/hr Documented by: Titration: 12/13/20 16:29 Dose: 7 mg/hr, 7 mls/hr Documented by: Titration: 12/13/20 14:20 Dose: 7 mg/hr, 7 mls/hr Documented by: Titration: 12/13/20 13:09 Dose: 6 mg/hr, 6 mls/hr Documented by: Titration: 12/13/20 12:00 Dose: 6 mg/hr, 6 mls/hr Documented by: Admin: 12/13/20 07:59 Dose: 5 mg/hr, 5 mls/hr Documented by: [email or web address] Insulin Human Regular (Insulin Regular 100 Unit/Ml 3 Ml Vial) 15 unit IV NOW ONE Stop: 12/12/20 04:58 Last Admin: 12/12/20 05:10 Dose: 15 unit Documented by: CASIE Cosigned by: MARY LOU Labetalol HCl (Labetalol 20 Mg/4 Ml Syringe) 5 mg IV NOW ONE Stop: 12/11/20 19:59 Last Admin: 12/11/20 20:11 Dose: 5 mg Documented by: KANDACE Lorazepam (Lorazepam 2 Mg/Ml Inj) 0.5 mg IV NOW ONE Stop: 12/11/20 14:48 Last Admin: 12/11/20 14:52 Dose: 0.5 mg Documented by: KANDACE Lorazepam (Lorazepam 2 Mg/Ml Inj) 1 mg IV NOW ONE Stop: 12/11/20 22:49 Last Admin: 12/11/20 22:50 Dose: 1 mg Documented by: KANDACE Lorazepam (Lorazepam 2 Mg/Ml Inj) 1 mg IV Q1HR PRN PRN Reason: Agitation/Anxiety Last Admin: 12/13/20 16:29 Dose: 1 mg Documented by: Admin: 12/13/20 14:15 Dose: 1 mg Documented by: Admin: 12/13/20 12:48 Dose: 1 mg Documented by: Admin: 12/13/20 06:24 Dose: 1 mg Documented by: Admin: 12/13/20 02:20 Dose: 1 mg Documented by: IMTIAZ Morphine Sulfate (Morphine 2 Mg/Ml Inj) 2 mg IV Q30MIN PRN PRN Reason: Pain/Dyspnea Last Admin: 12/12/20 14:40 Dose: 2 mg Documented by: RENZO Morphine Sulfate (Morphine 2 Mg/Ml Inj) 4 mg IV Q30MIN PRN PRN Reason: Pain/Dyspnea Last Admin: 12/12/20 18:30 Dose: 4 mg Documented by: Admin: 12/12/20 16:54 Dose: 4 mg Documented by: TITI Morphine Sulfate (Morphine 4 Mg/Ml Inj) 4 mg IV Q30MIN PRN PRN Reason: Pain/Dyspnea Last Admin: 12/13/20 04:48 Dose: 4 mg Documented by: Admin: 12/13/20 02:57 Dose: 4 mg Documented by: Admin: 12/13/20 00:18 Dose: 4 mg Documented by: Admin: 12/12/20 22:09 Dose: 4 mg Documented by: Admin: 12/12/20 21:13 Dose: 4 mg Documented by: Admin: 12/12/20 20:08 Dose: 4 mg Documented by: Admin: 12/12/20 19:23 Dose: 4 mg Documented by: TITI Naloxone HCl (Naloxone 1 Mg/Ml Syringe) 2 mg NASAL NOW ONE Stop: 12/11/20 12:14 Last Admin: 12/11/20 12:29 Dose: 2 mg Documented by: SARAH Nitroglycerin (Nitroglycerin Oint 1 Inch/Gm Oint...G.) 0.5 inch TOP NOW ONE Stop: 12/11/20 17:31 Last Admin: 12/11/20 17:32 Dose: 0.5 inch Documented by: KANDACE Ondansetron HCl (Ondansetron 4 Mg/2 Ml Inj) 4 mg IV Q4HR PRN PRN Reason: Nausea And Vomiting Phenobarbital (Phenobarbital 65 Mg/Ml Vial) 65 mg IV NOW ONE Stop: 12/12/20 01:52 Last Admin: 12/12/20 02:58 Dose: 65 mg Documented by: CASIE Scopolamine (Scopolamine 1 Patch) 1 patch TOP Q72H PRN PRN Reason: Secretions Last Admin: 12/12/20 14:39 Dose: 1 patch Documented by: RENZO Sodium Chloride (Sodium Chloride 0.9% Flush) 10 ml IV PRN PRN PRN Reason: Flush Last Admin: 12/13/20 06:24 Dose: 10 ml Documented by: Admin: 12/13/20 02:57 Dose: 10 ml Documented by: Admin: 12/13/20 00:17 Dose: 10 ml Documented by: IMTIAZ Sodium Chloride (Sodium Chloride 0.9% Flush) 10 ml IV BID DANIEL Last Admin: 12/13/20 22:15 Dose: Not Given Documented by: Admin: 12/13/20 12:16 Dose: Not Given Documented by: JULIANN Vancomycin HCl (Vancomycin Per Pharmacy) 1 request MISC NOW ONE Stop: 12/12/20 07:28 Last Admin: 12/12/20 10:16 Dose: Not Given Documented by: JM Vancomycin HCl (Vancomycin Trough) 1 request MIS [address] [facility] Reevaluation(s) Reevaluation #1: No seizures since received phenobarbital as well as Keppra. Repeat laboratory studies indicated for further medications. No heparin after discussion with Cardiology, patient is Hemoccult positive. Insulin given for hyperglycemia. Lasix ordered for further diuresis for CHF. Patient maintaining airway. Is on high-flow. Patient this time has adequate IV access for current medications. Lactic acid remains normal. As well as white cell count. Work of breathing remains labored with high-flow. Lung sounds do have some rales. Lasix ordered to help for relief of work of breathing. ABG completed. Not acidotic. Time: 05:31 Consultations Consultation #1: Spoke with cardiology, Dr Araiza, elevation in troponin. However patient is Hemoccult positive. She advises Do not give anticoagulation/heparin. EKG is sinus tachycardia no ST elevation Time: 05:25 Vital Signs Vital signs: Vital Signs - 8 hr 12/12/20 09:47 12/12/20 10:00 12/12/20 10:15 Temperature 102.4 F H 102.4 F H Pulse Rate 104 H 107 H 109 H Respiratory Rate 41 H 44 H 49 H Blood Pressure 124/77 121/65 Pulse Oximetry 97 94 94 12/12/20 10:16 12/12/20 10:30 12/12/20 10:45 Temperature 102 F H 102.2 F H Pulse Rate 105 H 103 H Respiratory Rate 48 H 15 Blood Pressure 132/68 Pulse Oximetry 94 95 12/12/20 11:00 12/12/20 11:06 12/12/20 11:15 Temperature 103.3 F H 103 F H 103.8 F H Pulse Rate 100 H 100 H Respiratory Rate 40 H 42 H Blood Pressure 120/72 Pulse Oximetry 96 95 12/12/20 11:30 12/12/20 11:45 12/12/20 12:00 Temperature 103.8 F H 103.8 F H 103.8 F H Pulse Rate 99 H 101 H 108 H Respiratory Rate 48 H 48 H 50 H Blood Pressure 115/68 139/80 Pulse Oximetry 96 96 96 12/12/20 12:06 12/12/20 12:10 12/12/20 12:15 Temperature 103.8 F H 104.0 F H Pulse Rate 101 H 108 H Respiratory Rate 46 H 48 H Blood Pressure Pulse Oximetry 93 95 12/12/20 12:30 12/12/20 12:45 12/12/20 13:00 Temperature 103.8 F H 103.8 F H 103.8 F H Pulse Rate 104 H 101 H 97 H Respiratory Rate 42 H 48 H 37 H Blood Pressure 123/73 117/67 Pulse Oximetry 93 93 93 12/12/20 13:08 12/12/20 13:15 Temperature 103.6 F H Pulse Rate 101 H 98 H Respiratory Rate 46 H 36 H Blood Pressure Pulse Oximetry 94 94 Medical Decision Making <Rahul Esposito, DO - Last Filed: 12/12/20 17:50> Medical Records Medical records reviewed: Yes I reviewed the patient's medical records. Lab Data Lab results reviewed: Yes I reviewed the patient's lab results. Result diagrams: 12/12/20 03:45 12/12/20 12:30 Labs: Lab Results 12/11/20 12/11/20 12/11/20 Range/Units 10:56 10:56 10:56 WBC 3.5 L (4.5-11.0) X10^3/uL RBC 4.55 (4.0-5.2) X10^6/uL Hgb 13.8 (12.0-16.0) g/dL Hct 41.4 (36-46) % MCV 91.1 (80-100) fL MCH 30.4 (26-34) PG MCHC 33.3 (30-36) % RDW 13.9 (11.6-14.8) % Plt Count 97 L (150-400) X10^3/uL Neut % (Auto) 73.3 (50-75) % Lymph % (Auto) 15.9 L (25-40) % Saline % (Auto) 10.4 (3-14) % Eos % (Auto) 0.0 L (2-4) % Baso % (Auto) 0.4 (0-2) % Neut # (Auto) 2600 (1991-3635) /uL Lymph # (Auto) 600 L (8765-9953) /uL Saline # (Auto) 400 (0-900) /uL Eos # (Auto) 0 (0-450) /uL Baso # (Auto) 0 (0-100) /uL ABG pH (7.35-7.45) ABG pCO2 (35-45) mmHg ABG pO2 (80-100) mmHg ABG HCO3 (22-26) mmol/L ABG Total CO2 (21-31) mmol/L ABG O2 Saturation (95-100) % ABG Base Excess (-2-2) mmol/L VBG pH (7.33-7.43) VBG pCO2 (45-50) mmHg VBG pO2 (35-45) mmHg VBG HCO3 (23-28) mmol/L VBG Total CO2 (24-29) mmol/L VBG O2 Saturation (70-75) % VBG Base Excess (0-4) mmol/L FiO2 Sodium 149 H (137-145) mmol/L Potassium 3.6 (3.4-5.1) mmol/L Chloride 115 H (98-107) mmol/L Carbon Dioxide 17 L (22-32) mmol/L BUN 31 H (7-17) mg/dL Creatinine 1.15 H (0.52-1.04) mg/dL Estimated GFR 48.8 L (>60) mL/min BUN/Creatinine Ratio 27.0 H (6-22) Glucose 460 H (70-100) mg/dL Hemoglobin A1c (4.0-6.0) % Lactate 1.8 (0.7-2.1) mmol/L Calcium 9.1 (8.4-10.2) mg/dL Phosphorus (2.5-4.5) mg/dL Magnesium (1.6-2.3) mg/dL Ferritin 613 H (11-264) ng/mL Total Bilirubin 0.9 (0.2-1.3) mg/dL AST 47 H (14-36) IU/L ALT 36 H (<35) IU/L Alkaline Phosphatase 100 (38-126) U/L Lactate Dehydrogenase 871 H (313-618) U/L Total Creatine Kinase 300 H (30-135) U/L CK-MB (CK-2) 2.19 (<2.37) ng/mL CK-MB (CK-2) Rel Index 0.7 L (1.5-5.0) % Troponin I 0.063 H (0.01-0.034) ng/mL C-Reactive Protein 5.5 H (<1.0) mg/dL NT-Pro-B Natriuret Pep 8140 H (<125) pg/mL Total Protein 7.7 (6.3-8.2) g/dL Albumin 4.6 (3.5-5.0) g/dL Globulin 3.1 (1.7-4.1) g/dL Albumin/Globulin Ratio 1.5 (1.0-2.8) Procalcitonin 0.11 (<0.5) ng/mL Urine Color Urine Appearance Urine pH (4.5-8.0) Ur Specific [employer] (1.000-1.035) Urine Protein (Negative) Urine Glucose (UA) (Negative) g/dL Urine Ketones (NEGATIVE) Urine Occult Blood (Negative) Urine Nitrate (Negative) Urine Bilirubin (NEGATIVE) Urine Urobilinogen (0.2) E.U./dL Ur Leukocyte Esterase (NEGATIVE) Urine RBC (0-5/HPF) Urine WBC (0-5/HPF) Urine Bacteria (None) Ur Culture Indicated? U Opiates 300ng/mL cut (Negative) Ur Oxycodone Screen (Negative) Urine Methadone Screen (Negative) Ur Barbiturates Screen (Negative) U Tricyclic Antidepress (Negative) Ur Phencyclidine Scrn (Negative) Ur Amphetamines Screen (Negative) U Methamphetamines Scrn (Negative) Ur MDMA Scrn (Ecstasy) (Negative) U Benzodiazepines Scrn (Negative) Urine Cocaine Screen (Negative) U Marijuana (THC) Screen (Negative) Ketones (<0.27) mmol/L SARS-CoV-2 (PCR) (Negative) Blood Type Antibody Screen 12/11/20 12/11/20 12/11/20 Range/Units 10:56 11:05 11:15 WBC (4.5-11.0) X10^3/uL RBC (4.0-5.2) X10^6/uL Hgb (12.0-16.0) g/dL Hct (36-46) % MCV (80-100) fL MCH (26-34) PG MCHC (30-36) % RDW (11.6-14.8) % Plt Count (150-400) X10^3/uL Neut % (Auto) (50-75) % Lymph % (Auto) (25-40) % Saline % (Auto) (3-14) % Eos % (Auto) (2-4) % Baso % (Auto) (0-2) % Neut # (Auto) (3727-5596) /uL Lymph # (Auto) (6941-7239) /uL Saline # (Auto) (0-900) /uL Eos # (Auto) (0-450) /uL Baso # (Auto) (0-100) /uL ABG pH (7.35-7.45) ABG pCO2 (35-45) mmHg ABG pO2 (80-100) mmHg ABG HCO3 (22-26) mmol/L ABG Total CO2 (21-31) mmol/L ABG O2 Saturation (95-100) % ABG Base Excess (-2-2) mmol/L VBG pH 7.40 (7.33-7.43) VBG pCO2 27.3 L (45-50) mmHg VBG pO2 40 (35-45) mmHg VBG HCO3 17 L (23-28) mmol/L VBG Total CO2 18 L (24-29) mmol/L VBG O2 Saturation 76 H (70-75) % VBG Base Excess -8.0 L (0-4) mmol/L FiO2 Sodium (137-145) mmol/L Potassium (3.4-5.1) mmol/L Chloride (98-107) mmol/L Carbon Dioxide (22-32) mmol/L BUN (7-17) mg/dL Creatinine (0.52-1.04) mg/dL Estimated GFR (>60) mL/min BUN/Creatinine Ratio (6-22) Glucose (70-100) mg/dL Hemoglobin A1c (4.0-6.0) % Lactate (0.7-2.1) mmol/L Calcium (8.4-10.2) mg/dL Phosphorus (2.5-4.5) mg/dL Magnesium (1.6-2.3) mg/dL Ferritin (11-264) ng/mL Total Bilirubin (0.2-1.3) mg/dL AST (14-36) IU/L ALT (<35) IU/L Alkaline Phosphatase (38-126) U/L Lactate Dehydrogenase (313-618) U/L Total Creatine Kinase (30-135) U/L CK-MB (CK-2) (<2.37) ng/mL CK-MB (CK-2) Rel Index (1.5-5.0) % Troponin I (0.01-0.034) ng/mL C-Reactive Protein (<1.0) mg/dL NT-Pro-B Natriuret Pep (<125) pg/mL Total Protein (6.3-8.2) g/dL Albumin (3.5-5.0) g/dL Globulin (1.7-4.1) g/dL Albumin/Globulin Ratio (1.0-2.8) Procalcitonin (<0.5) ng/mL Urine Color Urine Appearance Urine pH (4.5-8.0) Ur Specific [employer] (1.000-1.035) Urine Protein (Negative) Urine Glucose (UA) (Negative) g/dL Urine Ketones (NEGATIVE) Urine Occult Blood (Negative) Urine Nitrate (Negative) Urine Bilirubin (NEGATIVE) Urine Urobilinogen (0.2) E.U./dL Ur Leukocyte Esterase (NEGATIVE) Urine RBC (0-5/HPF) Urine WBC (0-5/HPF) Urine Bacteria (None) Ur Culture Indicated? U Opiates 300ng/mL cut (Negative) Ur Oxycodone Screen (Negative) Urine Methadone Screen (Negative) Ur Barbiturates Screen (Negative) U Tricyclic Antidepress (Negative) Ur Phencyclidine Scrn (Negative) Ur Amphetamines Screen (Negative) U Methamphetamines Scrn (Negative) Ur MDMA Scrn (Ecstasy) (Negative) U Benzodiazepines Scrn (Negative) Urine Cocaine Screen (Negative) U Marijuana (THC) Screen (Negative) Ketones 5.12 H (<0.27) mmol/L SARS-CoV-2 (PCR) (Negative) Blood Type A Positive Antibody Screen Negative 12/11/20 12/11/20 12/11/20 Range/Units 11:15 11:15 11:15 WBC (4.5-11.0) X10^3/uL RBC (4.0-5.2) X10^6/uL Hgb (12.0-16.0) g/dL Hct (36-46) % MCV (80-100) fL MCH (26-34) PG MCHC (30-36) % RDW (11.6-14.8) % Plt Count (150-400) X10^3/uL Neut % (Auto) (50-75) % Lymph % (Auto) (25-40) % Saline % (Auto) (3-14) % Eos % (Auto) (2-4) % Baso % (Auto) (0-2) % Neut # (Auto) (1195-6106) /uL Lymph # (Auto) (7038-6867) /uL Saline # (Auto) (0-900) /uL Eos # (Auto) (0-450) /uL Baso # (Auto) (0-100) /uL ABG pH (7.35-7.45) ABG pCO2 (35-45) mmHg ABG pO2 (80-100) mmHg ABG HCO3 (22-26) mmol/L ABG Total CO2 (21-31) mmol/L ABG O2 Saturation (95-100) % ABG Base Excess (-2-2) mmol/L VBG pH (7.33-7.43) VBG pCO2 (45-50) mmHg VBG pO2 (35-45) mmHg VBG HCO3 (23-28) mmol/L VBG Total CO2 (24-29) mmol/L VBG O2 Saturation (70-75) % VBG Base Excess (0-4) mmol/L FiO2 Sodium (137-145) mmol/L Potassium (3.4-5.1) mmol/L Chloride (98-107) mmol/L Carbon Dioxide (22-32) mmol/L BUN (7-17) mg/dL Creatinine (0.52-1.04) mg/dL Estimated GFR (>60) mL/min BUN/Creatinine Ratio (6-22) Glucose (70-100) mg/dL Hemoglobin A1c (4.0-6.0) % Lactate (0.7-2.1) mmol/L Calcium (8.4-10.2) mg/dL Phosphorus (2.5-4.5) mg/dL Magnesium (1.6-2.3) mg/dL Ferritin (11-264) ng/mL Total Bilirubin (0.2-1.3) mg/dL AST (14-36) IU/L ALT (<35) IU/L Alkaline Phosphatase (38-126) U/L Lactate Dehydrogenase (313-618) U/L Total Creatine Kinase (30-135) U/L CK-MB (CK-2) (<2.37) ng/mL CK-MB (CK-2) Rel Index (1.5-5.0) % Troponin I (0.01-0.034) ng/mL C-Reactive Protein (<1.0) mg/dL NT-Pro-B Natriuret Pep (<125) pg/mL Total Protein (6.3-8.2) g/dL Albumin (3.5-5.0) g/dL Globulin (1.7-4.1) g/dL Albumin/Globulin Ratio (1.0-2.8) Procalcitonin (<0.5) ng/mL Urine Color Yellow Urine Appearance Clear Urine pH 6.0 (4.5-8.0) Ur Specific [employer] 1.010 (1.000-1.035) Urine Protein 2+ H (Negative) Urine Glucose (UA) 3+ H (Negative) g/dL Urine Ketones 2+ H (NEGATIVE) Urine Occult Blood 1+ H (Negative) Urine Nitrate Negative (Negative) Urine Bilirubin Negative (NEGATIVE) Urine Urobilinogen 0.2 (0.2) E.U./dL Ur Leukocyte Esterase Negative (NEGATIVE) Urine RBC 0-1/hpf (0-5/HPF) Urine WBC 0-1/hpf (0-5/HPF) Urine Bacteria Occasional (0-1) (None) Ur Culture Indicated? Cult not indicated U Opiates 300ng/mL cut (Negative) Ur Oxycodone Screen (Negative) Urine Methadone Screen (Negative) Ur Barbiturates Screen (Negative) U Tricyclic Antidepress (Negative) Ur Phencyclidine Scrn (Negative) Ur Amphetamines Screen (Negative) U Methamphetamines Scrn (Negative) Ur MDMA Scrn (Ecstasy) (Negative) U Benzodiazepines Scrn (Negative) Urine Cocaine Screen (Negative) U Marijuana (THC) Screen (Negative) Ketones (<0.27) mmol/L SARS-CoV-2 (PCR) Positive H Positive H (Negative) Blood Type Antibody Screen 12/11/20 12/11/20 12/12/20 Range/Units 11:15 15:20 03:45 WBC 4.9 (4.5-11.0) X10^3/uL RBC 4.58 (4.0-5.2) X10^6/uL Hgb 13.9 (12.0-16.0) g/dL Hct 41.7 (36-46) % MCV 90.9 (80-100) fL MCH 30.4 (26-34) PG MCHC 33.4 (30-36) % RDW 14.0 (11.6-14.8) % Plt Count 110 L (150-400) X10^3/uL Neut % (Auto) 68.0 (50-75) % Lymph % (Auto) 14.0 L (25-40) % Saline % (Auto) 17.7 H (3-14) % Eos % (Auto) 0.0 L (2-4) % Baso % (Auto) 0.3 (0-2) % Neut # (Auto) 3400 (4070-4052) /uL Lymph # (Auto) 700 L (6351-5620) /uL Saline # (Auto) 900 (0-900) /uL Eos # (Auto) 0 (0-450) /uL Baso # (Auto) 0 (0-100) /uL ABG pH (7.35-7.45) ABG pCO2 (35-45) mmHg ABG pO2 (80-100) mmHg ABG HCO3 (22-26) mmol/L ABG Total CO2 (21-31) mmol/L ABG O2 Saturation (95-100) % ABG Base Excess (-2-2) mmol/L VBG pH (7.33-7.43) VBG pCO2 (45-50) mmHg VBG pO2 (35-45) mmHg VBG HCO3 (23-28) mmol/L VBG Total CO2 (24-29) mmol/L VBG O2 Saturation (70-75) % VBG Base Excess (0-4) mmol/L FiO2 Sodium (137-145) mmol/L Potassium (3.4-5.1) mmol/L Chloride (98-107) mmol/L Carbon Dioxide (22-32) mmol/L BUN (7-17) mg/dL Creatinine (0.52-1.04) mg/dL Estimated GFR (>60) mL/min BUN/Creatinine Ratio (6-22) Glucose (70-100) mg/dL Hemoglobin A1c (4.0-6.0) % Lactate (0.7-2.1) mmol/L Calcium (8.4-10.2) mg/dL Phosphorus (2.5-4.5) mg/dL Magnesium (1.6-2.3) mg/dL Ferritin (11-264) ng/mL Total Bilirubin (0.2-1.3) mg/dL AST (14-36) IU/L ALT (<35) IU/L Alkaline Phosphatase (38-126) U/L Lactate Dehydrogenase (313-618) U/L Total Creatine Kinase 286 H (30-135) U/L CK-MB (CK-2) 2.13 (<2.37) ng/mL CK-MB (CK-2) Rel Index 0.7 L (1.5-5.0) % Troponin I 0.078 H (0.01-0.034) ng/mL C-Reactive Protein (<1.0) mg/dL NT-Pro-B Natriuret Pep (<125) pg/mL Total Protein (6.3-8.2) g/dL Albumin (3.5-5.0) g/dL Globulin (1.7-4.1) g/dL Albumin/Globulin Ratio (1.0-2.8) Procalcitonin (<0.5) ng/mL Urine Color Urine Appearance Urine pH (4.5-8.0) Ur Specific [employer] (1.000-1.035) Urine Protein (Negative) Urine Glucose (UA) (Negative) g/dL Urine Ketones (NEGATIVE) Urine Occult Blood (Negative) Urine Nitrate (Negative) Urine Bilirubin (NEGATIVE) Urine Urobilinogen (0.2) E.U./dL Ur Leukocyte Esterase (NEGATIVE) Urine RBC (0-5/HPF) Urine WBC (0-5/HPF) Urine Bacteria (None) Ur Culture Indicated? U Opiates 300ng/mL cut Negative (Negative) Ur Oxycodone Screen Negative (Negative) Urine Methadone Screen Positive H (Negative) Ur Barbiturates Screen Negative (Negative) U Tricyclic Antidepress Negative (Negative) Ur Phencyclidine Scrn Negative (Negative) Ur Amphetamines Screen Negative (Negative) U Methamphetamines Scrn Negative (Negative) Ur MDMA Scrn (Ecstasy) Negative (Negative) U Benzodiazepines Scrn Negative (Negative) Urine Cocaine Screen Negative (Negative) U Marijuana (THC) Screen Negative (Negative) Ketones (<0.27) mmol/L SARS-CoV-2 (PCR) (Negative) Blood Type Antibody Screen 12/12/20 12/12/20 12/12/20 Range/Units 03:45 03:45 03:45 WBC (4.5-11.0) X10^3/uL RBC (4.0-5.2) X10^6/uL Hgb (12.0-16.0) g/dL Hct (36-46) % MCV (80-100) fL MCH (26-34) PG MCHC (30-36) % RDW (11.6-14.8) % Plt Count (150-400) X10^3/uL Neut % (Auto) (50-75) % Lymph % (Auto) (25-40) % Saline % (Auto) (3-14) % Eos % (Auto) (2-4) % Baso % (Auto) (0-2) % Neut # (Auto) (1910-8875) /uL Lymph # (Auto) (0262-7812) /uL Saline # (Auto) (0-900) /uL Eos # (Auto) (0-450) /uL Baso # (Auto) (0-100) /uL ABG pH (7.35-7.45) ABG pCO2 (35-45) mmHg ABG pO2 (80-100) mmHg ABG HCO3 (22-26) mmol/L ABG Total CO2 (21-31) mmol/L ABG O2 Saturation (95-100) % ABG Base Excess (-2-2) mmol/L VBG pH (7.33-7.43) VBG pCO2 (45-50) mmHg VBG pO2 (35-45) mmHg VBG HCO3 (23-28) mmol/L VBG Total CO2 (24-29) mmol/L VBG O2 Saturation (70-75) % VBG Base Excess (0-4) mmol/L FiO2 Sodium 156 H (137-145) mmol/L Potassium 3.4 (3.4-5.1) mmol/L Chloride 123 H* (98-107) mmol/L Carbon Dioxide 16 L (22-32) mmol/L BUN 44 H (7-17) mg/dL Creatinine 1.59 H (0.52-1.04) mg/dL Estimated GFR 33.6 L (>60) mL/min BUN/Creatinine Ratio 27.7 H (6-22) Glucose 537 H* (70-100) mg/dL Hemoglobin A1c (4.0-6.0) % Lactate 0.9 (0.7-2.1) mmol/L Calcium 8.4 (8.4-10.2) mg/dL Phosphorus (2.5-4.5) mg/dL Magnesium (1.6-2.3) mg/dL Ferritin (11-264) ng/mL Total Bilirubin 0.7 (0.2-1.3) mg/dL AST 54 H (14-36) IU/L ALT 37 H (<35) IU/L Alkaline Phosphatase 85 (38-126) U/L Lactate Dehydrogenase (313-618) U/L Total Creatine Kinase (30-135) U/L CK-MB (CK-2) (<2.37) ng/mL CK-MB (CK-2) Rel Index (1.5-5.0) % Troponin I 0.349 H* (0.01-0.034) ng/mL C-Reactive Protein (<1.0) mg/dL NT-Pro-B Natriuret Pep (<125) pg/mL Total Protein 6.9 (6.3-8.2) g/dL Albumin 3.9 (3.5-5.0) g/dL Globulin 3.0 (1.7-4.1) g/dL Albumin/Globulin Ratio 1.3 (1.0-2.8) Procalcitonin (<0.5) ng/mL Urine Color Urine Appearance Urine pH (4.5-8.0) Ur Specific [employer] (1.000-1.035) Urine Protein (Negative) Urine Glucose (UA) (Negative) g/dL Urine Ketones (NEGATIVE) Urine Occult Blood (Negative) Urine Nitrate (Negative) Urine Bilirubin (NEGATIVE) Urine Urobilinogen (0.2) E.U./dL Ur Leukocyte Esterase (NEGATIVE) Urine RBC (0-5/HPF) Urine WBC (0-5/HPF) Urine Bacteria (None) Ur Culture Indicated? U Opiates 300ng/mL cut (Negative) Ur Oxycodone Screen (Negative) Urine Methadone Screen (Negative) Ur Barbiturates Screen (Negative) U Tricyclic Antidepress (Negative) Ur Phencyclidine Scrn (Negative) Ur Amphetamines Screen (Negative) U Methamphetamines Scrn (Negative) Ur MDMA Scrn (Ecstasy) (Negative) U Benzodiazepines Scrn (Negative) Urine Cocaine Screen (Negative) U Marijuana (THC) Screen (Negative) Ketones (<0.27) mmol/L SARS-CoV-2 (PCR) (Negative) Blood Type Antibody Screen 12/12/20 12/12/20 12/12/20 Range/Units 03:45 03:45 05:16 WBC (4.5-11.0) X10^3/uL RBC (4.0-5.2) X10^6/uL Hgb (12.0-16.0) g/dL Hct (36-46) % MCV (80-100) fL MCH (26-34) PG MCHC (30-36) % RDW (11.6-14.8) % Plt Count (150-400) X10^3/uL Neut % (Auto) (50-75) % Lymph % (Auto) (25-40) % Saline % (Auto) (3-14) % Eos % (Auto) (2-4) % Baso % (Auto) (0-2) % Neut # (Auto) (1320-0000) /uL Lymph # (Auto) (3325-7105) /uL Saline # (Auto) (0-900) /uL Eos # (Auto) (0-450) /uL Baso # (Auto) (0-100) /uL ABG pH 7.45 (7.35-7.45) ABG pCO2 22.8 L* (35-45) mmHg ABG pO2 88 (80-100) mmHg ABG HCO3 16 L (22-26) mmol/L ABG Total CO2 17 L (21-31) mmol/L ABG O2 Saturation 97 (95-100) % ABG Base Excess -8.0 L (-2-2) mmol/L VBG pH (7.33-7.43) VBG pCO2 (45-50) mmHg VBG pO2 (35-45) mmHg VBG HCO3 (23-28) mmol/L VBG Total CO2 (24-29) mmol/L VBG O2 Saturation (70-75) % VBG Base Excess (0-4) mmol/L FiO2 50 Sodium (137-145) mmol/L Potassium (3.4-5.1) mmol/L Chloride (98-107) mmol/L Carbon Dioxide (22-32) mmol/L BUN (7-17) mg/dL Creatinine (0.52-1.04) mg/dL Estimated GFR (>60) mL/min BUN/Creatinine Ratio (6-22) Glucose (70-100) mg/dL Hemoglobin A1c 7.7 H (4.0-6.0) % Lactate (0.7-2.1) mmol/L Calcium (8.4-10.2) mg/dL Phosphorus (2.5-4.5) mg/dL Magnesium (1.6-2.3) mg/dL Ferritin (11-264) ng/mL Total Bilirubin (0.2-1.3) mg/dL AST (14-36) IU/L ALT (<35) IU/L Alkaline Phosphatase (38-126) U/L Lactate Dehydrogenase (313-618) U/L Total Creatine Kinase (30-135) U/L CK-MB (CK-2) (<2.37) ng/mL CK-MB (CK-2) Rel Index (1.5-5.0) % Troponin I (0.01-0.034) ng/mL C-Reactive Protein (<1.0) mg/dL NT-Pro-B Natriuret Pep (<125) pg/mL Total Protein (6.3-8.2) g/dL Albumin (3.5-5.0) g/dL Globulin (1.7-4.1) g/dL Albumin/Globulin Ratio (1.0-2.8) Procalcitonin (<0.5) ng/mL Urine Color Urine Appearance Urine pH (4.5-8.0) Ur Specific [employer] (1.000-1.035) Urine Protein (Negative) Urine Glucose (UA) (Negative) g/dL Urine Ketones (NEGATIVE) Urine Occult Blood (Negative) Urine Nitrate (Negative) Urine Bilirubin (NEGATIVE) Urine Urobilinogen (0.2) E.U./dL Ur Leukocyte Esterase (NEGATIVE) Urine RBC (0-5/HPF) Urine WBC (0-5/HPF) Urine Bacteria (None) Ur Culture Indicated? U Opiates 300ng/mL cut (Negative) Ur Oxycodone Screen (Negative) Urine Methadone Screen (Negative) Ur Barbiturates Screen (Negative) U Tricyclic Antidepress (Negative) Ur Phencyclidine Scrn (Negative) Ur Amphetamines Screen (Negative) U Methamphetamines Scrn (Negative) Ur MDMA Scrn (Ecstasy) (Negative) U Benzodiazepines Scrn (Negative) Urine Cocaine Screen (Negative) U Marijuana (THC) Screen (Negative) Ketones 5.34 H (<0.27) mmol/L SARS-CoV-2 (PCR) (Negative) Blood Type Antibody Screen 12/12/20 12/12/20 12/12/20 Range/Units 07:50 12:30 12:30 WBC (4.5-11.0) X10^3/uL RBC (4.0-5.2) X10^6/uL Hgb (12.0-16.0) g/dL Hct (36-46) % MCV (80-100) fL MCH (26-34) PG MCHC (30-36) % RDW (11.6-14.8) % Plt Count (150-400) X10^3/uL Neut % (Auto) (50-75) % Lymph % (Auto) (25-40) % Saline % (Auto) (3-14) % Eos % (Auto) (2-4) % Baso % (Auto) (0-2) % Neut # (Auto) (0543-8889) /uL Lymph # (Auto) (2491-3848) /uL Saline # (Auto) (0-900) /uL Eos # (Auto) (0-450) /uL Baso # (Auto) (0-100) /uL ABG pH (7.35-7.45) ABG pCO2 (35-45) mmHg ABG pO2 (80-100) mmHg ABG HCO3 (22-26) mmol/L ABG Total CO2 (21-31) mmol/L ABG O2 Saturation (95-100) % ABG Base Excess (-2-2) mmol/L VBG pH (7.33-7.43) VBG pCO2 (45-50) mmHg VBG pO2 (35-45) mmHg VBG HCO3 (23-28) mmol/L VBG Total CO2 (24-29) mmol/L VBG O2 Saturation (70-75) % VBG Base Excess (0-4) mmol/L FiO2 Sodium 157 H 158 H (137-145) mmol/L Potassium 3.2 L 3.5 (3.4-5.1) mmol/L Chloride 125 H* 128 H* (98-107) mmol/L Carbon Dioxide 19 L 21 L (22-32) mmol/L BUN 45 H 43 H (7-17) mg/dL Creatinine 1.66 H 1.49 H (0.52-1.04) mg/dL Estimated GFR 32.0 L 36.2 L (>60) mL/min BUN/Creatinine Ratio 27.1 H 28.9 H (6-22) Glucose 422 H D 211 H D (70-100) mg/dL Hemoglobin A1c (4.0-6.0) % Lactate 1.9 (0.7-2.1) mmol/L Calcium 8.8 8.3 L (8.4-10.2) mg/dL Phosphorus 2.9 (2.5-4.5) mg/dL Magnesium 2.6 H (1.6-2.3) mg/dL Ferritin (11-264) ng/mL Total Bilirubin (0.2-1.3) mg/dL AST (14-36) IU/L ALT (<35) IU/L Alkaline Phosphatase (38-126) U/L Lactate Dehydrogenase (313-618) U/L Total Creatine Kinase (30-135) U/L CK-MB (CK-2) (<2.37) ng/mL CK-MB (CK-2) Rel Index (1.5-5.0) % Troponin I 0.569 H* (0.01-0.034) ng/mL C-Reactive Protein (<1.0) mg/dL NT-Pro-B Natriuret Pep (<125) pg/mL Total Protein (6.3-8.2) g/dL Albumin (3.5-5.0) g/dL Globulin (1.7-4.1) g/dL Albumin/Globulin Ratio (1.0-2.8) Procalcitonin (<0.5) ng/mL Urine Color Urine Appearance Urine pH (4.5-8.0) Ur Specific [employer] (1.000-1.035) Urine Protein (Negative) Urine Glucose (UA) (Negative) g/dL Urine Ketones (NEGATIVE) Urine Occult Blood (Negative) Urine Nitrate (Negative) Urine Bilirubin (NEGATIVE) Urine Urobilinogen (0.2) E.U./dL Ur Leukocyte Esterase (NEGATIVE) Urine RBC (0-5/HPF) Urine WBC (0-5/HPF) Urine Bacteria (None) Ur Culture Indicated? U Opiates 300ng/mL cut (Negative) Ur Oxycodone Screen (Negative) Urine Methadone Screen (Negative) Ur Barbiturates Screen (Negative) U Tricyclic Antidepress (Negative) Ur Phencyclidine Scrn (Negative) Ur Amphetamines Screen (Negative) U Methamphetamines Scrn (Negative) Ur MDMA Scrn (Ecstasy) (Negative) U Benzodiazepines Scrn (Negative) Urine Cocaine Screen (Negative) U Marijuana (THC) Screen (Negative) Ketones (<0.27) mmol/L SARS-CoV-2 (PCR) (Negative) Blood Type Antibody Screen Point of Care Testing Glucose POC 219 Urine Dip Bedside Urine Glucose 250 mg/dl Bedside Urine Bilirubin - Negative Bedside Urine Ketone +/- 5 Urine Specific [employer] 1.015 Bedside Urine Occult Blood +++ Bedside Urine pH 6.0 Bedside Urine Protein ++ 100 Bedside Urine Urobilinogen 0.2 Bedside Urine Nitrite - Negative Bedside Urine Leukocytes - Negative Esterase Point of care testing: Point of Care Testing Glucose POC 219 Urine Dip Bedside Urine Glucose 250 mg/dl Bedside Urine Bilirubin - Negative Bedside Urine Ketone +/- 5 Urine [address] [employer] [place] 1.015 Bedside Urine Occult Blood +++ Bedside Urine pH 6.0 Bedside Urine Protein ++ 100 Bedside Urine Urobilinogen 0.2 Bedside Urine Nitrite - Negative Bedside Urine Leukocytes - Negative Esterase Imaging Data Chest x-ray: Radiologist's Impression: Launch?[address] [address] XRay Report Signed Patient: Kathie Perkins MR#: [id number] : 1965 Acct:[id number] Age/Sex: 55 / F Date of Service: 12/11/20 Loc: ED Accession Number: [id number] ?? Procedure: XR chest 1V Ordering Provider: Rahul Esposito D.O. PROCEDURE:? XR CHEST 1V ? INDICATIONS:? flu-like symptoms ? TECHNIQUE:? One view of the chest was acquired.? ? COMPARISON:? [facility], CT, CT HEAD/BRAIN WO CON, 12/11/2020, 11:22. ? FINDINGS:? ? Surgical changes and devices:? None.? ? Lungs and pleura:? Mild generalized interstitial prominence can be seen.? On this semiupright portable chest examination, no large pneumothorax or large pleural effusions are seen. ? Low lung volumes are noted. This causes a crowded appearance to the lung markings and limits evaluation.? ? Mediastinum:? Mediastinal contours appear normal.? Heart size is moderately enla rged.? ? Bones and chest wall:? No suspicious bony lesions.? Age-appropriate bony degenerative changes are seen.? Overlying soft tissues appear unremarkable.? ? ? IMPRESSION:? Cardiomegaly and interstitial prominence.? Please correlate with patient presentation, physical examination findings, and laboratory values for congestive heart failure. ? ? However, given the flu-like symptoms, please consider atypical infiltrate, including COVID pneumonia.? ? Dictated by: Milton Ferrer M.D. on 12/11/2020 at 10:46 ? ? Approved by: Milton Ferrer M.D. on 12/11/[address] scan - head: Radiologist's Impression: [place] [address] CT Scan Report Signed Patient: Kathie Perkins MR#: [id number] : 1965 Acct:[id number] Age/Sex: 55 / F Date of Service: 12/11/20 Loc: ED Accession Number: [id number] ?? Procedure: CT head/brain wo con Ordering Provider: Rahul Esposito D.O. PROCEDURE:? CT HEAD/BRAIN WO CON ? INDICATIONS:? Altered mental status ? TECHNIQUE:? Noncontrast 4.5 mm thick angled axial sections acquired from the foramen magnum to the vertex, with coronal and sagittal reformats.? For radiation dose reduction, the following was used:? automated exposure control, adjustment of mA and/or kV according to patient size.? ? COMPARISON:? None. ? FINDINGS:? Image quality:? Excellent.? ? CSF spaces:? Basal cisterns are patent.? No extra-axial fluid collections.? Ventricles are normal in size and shape.? ? Brain:? There is a subtle nodular density in the left occipital lobe with peripheral hypodense halo.? No midline shift.? No intracranial masses or hemorrhage.? Paul- white matter interface is normal.? ? Skull and face:? Calvarium and visualized facial bones are intact, without suspicious lesions.? ? Sinuses:? Visualized sinuses and mastoids are clear.? ? IMPRESSION:? There is a subtle nodular density in the left occipital lobe with peripheral hypodense halo suggesting mild vasogenic edema.? Alternatively, the appearance could be caused an artifact.? Recommend MRI with and without contrast for follow-up evalu ation. ? The result was discussed with Dr. Esposito.? ? ? Dictated by: Malini Greenwood M.D. on 12/11/2020 at 11:43 ? ? Approved by: Malini Greenwood M.D. on 12/11/2020 at 11:49? Brain MRI: Radiologist's Impression: [address] [address] Magnetic Resonance Report Signed Patient: Kathie Perkins MR#: [id number] : 1965 Acct:[id number] Age/Sex: 55 / F Date of Service: 12/11/20 Loc: ED Accession Number: [id number] ?? Procedure: MR head/brain wo/w con Ordering Provider: Rahul Esposito D.O. PROCEDURE:? MR HEAD/BRAIN WO/W CON ? INDICATIONS:? mass seen on CT scan rads rec MRI ? TECHNIQUE:? Noncontrast axial T1 spin echo, axial T2 fast spin echo, sagittal and axial FLAIR, coronal T2 fast spin echo, axial gradient echo, axial diffusion and ADC through the brain.? After the administration of contrast, axial and coronal 3D VIBE or T1 spin echo with fat saturation through the brain.? ? COMPARISON:? [facility], CR, XR CHEST 1V, 12/11/2020, 11:16.? [facility], CT, CT HEAD/BRAIN WO CON, 12/11/2020, 11:22. ? FINDINGS:? Image quality:? Limited by motion artifact ? CSF Spaces:? Basal cisterns are patent.? No extra-axial fluid collections.? Ventricles are normal in size and shape.? ? Brain:? Multifocal patchy FLAIR hyperintensities noted particularly involving the occipital cortex with mild gyral swelling, but also involving the subcortical white matter, deep frontoparietal white matter along the [place] watershed, as well as minimally involving the bilateral superior frontal gyral cortex.? Additional hyperintensity involves the mid central fish.? Trace patchy enhancement noted in the involved cortex. ? No midline shift.? No intracranial bleeds or masses.? Minimal diffusion hyperintensity probably reflects artifactual T2 shine through.? Normal intravascular flow voids are present.? ? Skull and face:? Calvarial marrow is normal in signal.? Orbits appear normal.? ? Sinuses:? Bilateral maxillary sinus mucosal thickening present. ? IMPRESSION:? ? Cortical and subcortical white matter hyperintensities with vague enhancement and posterior occipital predominance.? Differential is quite broad and includes posterior reversible encephalopathy syndrome, small vessel vasculitis, and multifocal encephalitis or hypoxic-ischemic encephalopathy.? Less likely, if the diffusion signal is real, Creutzfeldt-Desmond disease could be considered.? ? ? Approved by: Gildardo Burger M.D. on 12/11/2020 at 15:24? repeat CXR: Radiologist's Impression: [place] [address] XRay Report Signed Patient: Kathie Perkins MR#: [id number] : 1965 Acct:[id number] Age/Sex: 55 / F Date of Service: 12/12/20 Loc: ED Accession Number: [id number] ?? Procedure: XR chest 1V Ordering Provider: Rahul Esposito D.O. PROCEDURE:? XR CHEST 1V ? INDICATIONS:? covid PNA ? TECHNIQUE:? One view of the chest was acquired.? ? COMPARISON:? [facility], CR, XR CHEST 1V, 12/11/2020, 11:16. ? FINDINGS:? ? Surgical changes and devices:? Stimulator device is noted. ? Lungs and pleura:? Lead is noted overlying the left hemithorax limiting evaluation.? Persistent appearance of mild interstitial prominence. ? Mediastinum:? Mediastinal contours appear normal.? Heart size is enlarged. ? Bones and chest wall:? No suspicious bony lesions.? Overlying soft tissues appear unremarkable.? ? IMPRESSION:? Limited evaluation secondary to overlying lead.? Persistent appearance of mild interstitial prominence, slightly less prominent.? ? ? Dictated by: Lauryn Hernandez M.D. on 12/12/2020 at 7:49 ? ? Approved by: Lauryn Hernandez M.D. on 12/12/2020 at 7:50?? ECG Data Attestation: I personally reviewed and interpreted this ECG as follows: Interpretation: Sinus rhythm Ventricular rate 82 First-degree AV block VT interval 234 milliseconds Normal axis LVH Normal QTC Normal QRS No ST T wave changes MDM Narrative Medical decision making narrative: Patient was unable to provide any HPI and review of systems. Unsure as exactly how long she has been altered or to what extent but it appears that has been going on for the past couple days. Upon arrival patient was maintaining her airway. Labs were ordered. Given her presentation she was treated as a sepsis patient was given Rocephin and azithromycin. Blood cultures were obtained. She did have dark colored stools and was Hemoccult positive however was not hypotensive, not tachycardic and was not anemic. Patient is COVID positive. Chest x-ray is consistent with this. Patient did have methadone in her UDS and does have Percocet on her medication list. She was given 2 mg of Narcan intranasal. This provided no change in her mental status. Have an elevated BNP and a troponin above the 99th percentile but not above AMI cut off. She was given rectal aspirin. I felt that this was appropriate given her lab results despite the Hemoccult-positive stools given the potential for cardiac pathology. She was also given Lasix. Nitropaste was also placed given her elevated blood pressure. Unsure as to what her baseline blood pressure is. Review of her prior medical record shows a ED report from approximately 1 year ago were she had a systolic blood pressure approximately 160. And her COVID was resulted positive she was given dexamethasone and also remdesivir. Patient's head CT does show an abnormality verses artifact in the occipital lobe. Did receive a call from Radiology regarding this. He recommended an MRI with and without contrast. We were able to obtain this however there was a several hour delay given the MRI schedule. The brain MRI did show abnormalities with potential multiple etiologies. I did discuss the case with Dr. Rod with neurology at the [facility] who did recommend that the patient be transferred to a facility that has Neurology follow-up as she potentially will need further intervention to include lumbar puncture, EEG, further MRIs. She did recommend continuing to try to lower the blood pressure. No further antibiotics recommended. Care turned over to Dr. Whitney to follow-up and disposition. 12/12/20: Dr Esposito: I received turned over from Dr. Whitney. I reviewed the patient's overnight events. Reviewed the updated labs. Patient continues to deteriorate. Respiratory emerson she is worse than what she was yesterday. She is currently on an insulin drip. Was able to talk with the patient's son on the phone. I tried to express to him how sick his mother was but at the time that I talked with him I did not feel that the patient was emergently deteriorating. Janie carrizales had a discussion about her code status. He stated that the family had talked and that the family knew that the patient would not want any aggressive resuscitation and would not want to be placed on ?life support ?he was okay with what we were doing up to this point. We continue to wait for bed assignment at [facility]. Given the patient's change overnight in her respiratory status the fact that she was now on an insulin drip I do not feel that the patient would be appropriate on a Neurology Service. She most likely would need the ICU/medicine service. After several hours waiting for [facility] social sciences lecturer to call me back I was able to talk with that individ ua. She stated that she wanted to speak with Neurology to discuss the best placement for the patient. We have also been in contact with the regional coordination Center and there are no ICU beds in the [facility] area. I then discussed the case with Dr. Flores the hospitalist here at this hospital about admitting to the hospital into a bed becomes available. He had multiple discussions with the patient's family and eventually decision was made to make the patient a DNR not escalate care higher than what is currently being provided. We will admit her to this facility for continued evaluation and treatment. <Piyush Whitney MD - Last Filed: 12/14/20 16:44> Lab Data Labs: Lab Results 12/11/20 12/11/20 12/11/20 Range/Units 10:56 10:56 10:56 WBC 3.5 L (4.5-11.0) X10^3/uL RBC 4.55 (4.0-5.2) X10^6/uL Hgb 13.8 (12.0-16.0) g/dL Hct 41.4 (36-46) % MCV 91.1 (80-100) fL MCH 30.4 (26-34) PG MCHC 33.3 (30-36) % RDW 13.9 (11.6-14.8) % Plt Count 97 L (150-400) X10^3/uL Neut % (Auto) 73.3 (50-75) % Lymph % (Auto) 15.9 L (25-40) % Saline % (Auto) 10.4 (3-14) % Eos % (Auto) 0.0 L (2-4) % Baso % (Auto) 0.4 (0-2) % Neut # (Auto) 2600 (6593-0505) /uL Lymph # (Auto) 600 L (0200-1830) /uL Saline # (Auto) 400 (0-900) /uL Eos # (Auto) 0 (0-450) /uL Baso # (Auto) 0 (0-100) /uL ABG pH (7.35-7.45) ABG pCO2 (35-45) mmHg ABG pO2 (80-100) mmHg ABG HCO3 (22-26) mmol/L ABG Total CO2 (21-31) mmol/L ABG O2 Saturation (95-100) % ABG Base Excess (-2-2) mmol/L VBG pH (7.33-7.43) VBG pCO2 (45-50) mmHg VBG pO2 (35-45) mmHg VBG HCO3 (23-28) mmol/L VBG Total CO2 (24-29) mmol/L VBG O2 Saturation (70-75) % VBG Base Excess (0-4) mmol/L FiO2 Sodium 149 H (137-145) mmol/L Potassium 3.6 (3.4-5.1) mmol/L Chloride 115 H (98-107) mmol/L Carbon Dioxide 17 L (22-32) mmol/L BUN 31 H (7-17) mg/dL Creatinine 1.15 H (0.52-1.04) mg/dL Estimated GFR 48.8 L (>60) mL/min BUN/Creatinine Ratio 27.0 H (6-22) Glucose 460 H (70-100) mg/dL Hemoglobin A1c (4.0-6.0) % Lactate 1.8 (0.7-2.1) mmol/L Calcium 9.1 (8.4-10.2) mg/dL Phosphorus (2.5-4.5) mg/dL Magnesium (1.6-2.3) mg/dL Ferritin 613 H (11-264) ng/mL Total Bilirubin 0.9 (0.2-1.3) mg/dL AST 47 H (14-36) IU/L ALT 36 H (<35) IU/L Alkaline Phosphatase 100 (38-126) U/L Lactate Dehydrogenase 871 H (313-618) U/L Total Creatine Kinase 300 H (30-135) U/L CK-MB (CK-2) 2.19 (<2.37) ng/mL CK-MB (CK-2) Rel Index 0.7 L (1.5-5.0) % Troponin I 0.063 H (0.01-0.034) ng/mL C-Reactive Protein 5.5 H (<1.0) mg/dL NT-Pro-B Natriuret Pep 8140 H (<125) pg/mL Total Protein 7.7 (6.3-8.2) g/dL Albumin 4.6 (3.5-5.0) g/dL Globulin 3.1 (1.7-4.1) g/dL Albumin/Globulin Ratio 1.5 (1.0-2.8) Procalcitonin 0.11 (<0.5) ng/mL Urine Color Urine Appearance Urine pH (4.5-8.0) Ur Specific [employer] (1.000-1.035) Urine Protein (Negative) Urine Glucose (UA) (Negative) g/dL Urine Ketones (NEGATIVE) Urine Occult Blood (Negative) Urine Nitrate (Negative) Urine Bilirubin (NEGATIVE) Urine Urobilinogen (0.2) E.U./dL Ur Leukocyte Esterase (NEGATIVE) Urine RBC (0-5/HPF) Urine WBC (0-5/HPF) Urine Bacteria (None) Ur Culture Indicated? U Opiates 300ng/mL cut (Negative) Ur Oxycodone Screen (Negative) Urine Methadone Screen (Negative) Ur Barbiturates Screen (Negative) U Tricyclic Antidepress (Negative) Ur Phencyclidine Scrn (Negative) Ur Amphetamines Screen (Negative) U Methamphetamines Scrn (Negative) Ur MDMA Scrn (Ecstasy) (Negative) U Benzodiazepines Scrn (Negative) Urine Cocaine Screen (Negative) U Marijuana (THC) Screen (Negative) Ketones (<0.27) mmol/L SARS-CoV-2 (PCR) (Negative) Blood Type Antibody Screen 12/11/20 12/11/20 12/11/20 Range/Units 10:56 11:05 11:15 WBC (4.5-11.0) X10^3/uL RBC (4.0-5.2) X10^6/uL Hgb (12.0-16.0) g/dL Hct (36-46) % MCV (80-100) fL MCH (26-34) PG MCHC (30-36) % RDW (11.6-14.8) % Plt Count (150-400) X10^3/uL Neut % (Auto) (50-75) % Lymph % (Auto) (25-40) % Saline % (Auto) (3-14) % Eos % (Auto) (2-4) % Baso % (Auto) (0-2) % Neut # (Auto) (7312-9166) /uL Lymph # (Auto) (2848-6756) /uL Saline # (Auto) (0-900) /uL Eos # (Auto) (0-450) /uL Baso # (Auto) (0-100) /uL ABG pH (7.35-7.45) ABG pCO2 (35-45) mmHg ABG pO2 (80-100) mmHg ABG HCO3 (22-26) mmol/L ABG Total CO2 (21-31) mmol/L ABG O2 Saturation (95-100) % ABG Base Excess (-2-2) mmol/L VBG pH 7.40 (7.33-7.43) VBG pCO2 27.3 L (45-50) mmHg VBG pO2 40 (35-45) mmHg VBG HCO3 17 L (23-28) mmol/L VBG Total CO2 18 L (24-29) mmol/L VBG O2 Saturation 76 H (70-75) % VBG Base Excess -8.0 L (0-4) mmol/L FiO2 Sodium (137-145) mmol/L Potassium (3.4-5.1) mmol/L Chloride (98-107) mmol/L Carbon Dioxide (22-32) mmol/L BUN (7-17) mg/dL Creatinine (0.52-1.04) mg/dL Estimated GFR (>60) mL/min BUN/Creatinine Ratio (6-22) Glucose (70-100) mg/dL Hemoglobin A1c (4.0-6.0) % Lactate (0.7-2.1) mmol/L Calcium (8.4-10.2) mg/dL Phosphorus (2.5-4.5) mg/dL Magnesium (1.6-2.3) mg/dL Ferritin (11-264) ng/mL Total Bilirubin (0.2-1.3) mg/dL AST (14-36) IU/L ALT (<35) IU/L Alkaline Phosphatase (38-126) U/L Lactate Dehydrogenase (313-618) U/L Total Creatine Kinase (30-135) U/L CK-MB (CK-2) (<2.37) ng/mL CK-MB (CK-2) Rel Index (1.5-5.0) % Troponin I (0.01-0.034) ng/mL C-Reactive Protein (<1.0) mg/dL NT-Pro-B Natriuret Pep (<125) pg/mL Total Protein (6.3-8.2) g/dL Albumin (3.5-5.0) g/dL Globulin (1.7-4.1) g/dL Albumin/Globulin Ratio (1.0-2.8) Procalcitonin (<0.5) ng/mL Urine Color Urine Appearance Urine pH (4.5-8.0) Ur Specific [employer] (1.000-1.035) Urine Protein (Negative) Urine Glucose (UA) (Negative) g/dL Urine Ketones (NEGATIVE) Urine Occult Blood (Negative) Urine Nitrate (Negative) Urine Bilirubin (NEGATIVE) Urine Urobilinogen (0.2) E.U./dL Ur Leukocyte Esterase (NEGATIVE) Urine RBC (0-5/HPF) Urine WBC (0-5/HPF) Urine Bacteria (None) Ur Culture Indicated? U Opiates 300ng/mL cut (Negative) Ur Oxycodone Screen (Negative) Urine Methadone Screen (Negative) Ur Barbiturates Screen (Negative) U Tricyclic Antidepress (Negative) Ur Phencyclidine Scrn (Negative) Ur Amphetamines Screen (Negative) U Methamphetamines Scrn (Negative) Ur MDMA Scrn (Ecstasy) (Negative) U Benzodiazepines Scrn (Negative) Urine Cocaine Screen (Negative) U Marijuana (THC) Screen (Negative) Ketones 5.12 H (<0.27) mmol/L SARS-CoV-2 (PCR) (Negative) Blood Type A Positive Antibody Screen Negative 12/11/20 12/11/20 12/11/20 Range/Units 11:15 11:15 11:15 WBC (4.5-11.0) X10^3/uL RBC (4.0-5.2) X10^6/uL Hgb (12.0-16.0) g/dL Hct (36-46) % MCV (80-100) fL MCH (26-34) PG MCHC (30-36) % RDW (11.6-14.8) % Plt Count (150-400) X10^3/uL Neut % (Auto) (50-75) % Lymph % (Auto) (25-40) % Saline % (Auto) (3-14) % Eos % (Auto) (2-4) % Baso % (Auto) (0-2) % Neut # (Auto) (8451-6774) /uL Lymph # (Auto) (6094-8204) /uL Saline # (Auto) (0-900) /uL Eos # (Auto) (0-450) /uL Baso # (Auto) (0-100) /uL ABG pH (7.35-7.45) ABG pCO2 (35-45) mmHg ABG pO2 (80-100) mmHg ABG HCO3 (22-26) mmol/L ABG Total CO2 (21-31) mmol/L ABG O2 Saturation (95-100) % ABG Base Excess (-2-2) mmol/L VBG pH (7.33-7.43) VBG pCO2 (45-50) mmHg VBG pO2 (35-45) mmHg VBG HCO3 (23-28) mmol/L VBG Total CO2 (24-29) mmol/L VBG O2 Saturation (70-75) % VBG Base Excess (0-4) mmol/L FiO2 Sodium (137-145) mmol/L Potassium (3.4-5.1) mmol/L Chloride (98-107) mmol/L Carbon Dioxide (22-32) mmol/L BUN (7-17) mg/dL Creatinine (0.52-1.04) mg/dL Estimated GFR (>60) mL/min BUN/Creatinine Ratio (6-22) Glucose (70-100) mg/dL Hemoglobin A1c (4.0-6.0) % Lactate (0.7-2.1) mmol/L Calcium (8.4-10.2) mg/dL Phosphorus (2.5-4.5) mg/dL Magnesium (1.6-2.3) mg/dL Ferritin (11-264) ng/mL Total Bilirubin (0.2-1.3) mg/dL AST (14-36) IU/L ALT (<35) IU/L Alkaline Phosphatase (38-126) U/L Lactate Dehydrogenase (313-618) U/L Total Creatine Kinase (30-135) U/L CK-MB (CK-2) (<2.37) ng/mL CK-MB (CK-2) Rel Index (1.5-5.0) % Troponin I (0.01-0.034) ng/mL C-Reactive Protein (<1.0) mg/dL NT-Pro-B Natriuret Pep (<125) pg/mL Total Protein (6.3-8.2) g/dL Albumin (3.5-5.0) g/dL Globulin (1.7-4.1) g/dL Albumin/Globulin Ratio (1.0-2.8) Procalcitonin (<0.5) ng/mL Urine Color Yellow Urine Appearance Clear Urine pH 6.0 (4.5-8.0) Ur Specific [employer] 1.010 (1.000-1.035) Urine Protein 2+ H (Negative) Urine Glucose (UA) 3+ H (Negative) g/dL Urine Ketones 2+ H (NEGATIVE) Urine Occult Blood 1+ H (Negative) Urine Nitrate Negative (Negative) Urine Bilirubin Negative (NEGATIVE) Urine Urobilinogen 0.2 (0.2) E.U./dL Ur Leukocyte Esterase Negative (NEGATIVE) Urine RBC 0-1/hpf (0-5/HPF) Urine WBC 0-1/hpf (0-5/HPF) Urine Bacteria Occasional (0-1) (None) Ur Culture Indicated? Cult not indicated U Opiates 300ng/mL cut (Negative) Ur Oxycodone Screen (Negative) Urine Methadone Screen (Negative) Ur Barbiturates Screen (Negative) U Tricyclic Antidepress (Negative) Ur Phencyclidine Scrn (Negative) Ur Amphetamines Screen (Negative) U Methamphetamines Scrn (Negative) Ur MDMA Scrn (Ecstasy) (Negative) U Benzodiazepines Scrn (Negative) Urine Cocaine Screen (Negative) U Marijuana (THC) Screen (Negative) Ketones (<0.27) mmol/L SARS-CoV-2 (PCR) Positive H Positive H (Negative) Blood Type Antibody Screen 12/11/20 12/11/20 12/12/20 Range/Units 11:15 15:20 03:45 WBC 4.9 (4.5-11.0) X10^3/uL RBC 4.58 (4.0-5.2) X10^6/uL Hgb 13.9 (12.0-16.0) g/dL Hct 41.7 (36-46) % MCV 90.9 (80-100) fL MCH 30.4 (26-34) PG MCHC 33.4 (30-36) % RDW 14.0 (11.6-14.8) % Plt Count 110 L (150-400) X10^3/uL Neut % (Auto) 68.0 (50-75) % Lymph % (Auto) 14.0 L (25-40) % Saline % (Auto) 17.7 H (3-14) % Eos % (Auto) 0.0 L (2-4) % Baso % (Auto) 0.3 (0-2) % Neut # (Auto) 3400 (1280-6787) /uL Lymph # (Auto) 700 L (4611-1025) /uL Saline # (Auto) 900 (0-900) /uL Eos # (Auto) 0 (0-450) /uL Baso # (Auto) 0 (0-100) /uL ABG pH (7.35-7.45) ABG pCO2 (35-45) mmHg ABG pO2 (80-100) mmHg ABG HCO3 (22-26) mmol/L ABG Total CO2 (21-31) mmol/L ABG O2 Saturation (95-100) % ABG Base Excess (-2-2) mmol/L VBG pH (7.33-7.43) VBG pCO2 (45-50) mmHg VBG pO2 (35-45) mmHg VBG HCO3 (23-28) mmol/L VBG Total CO2 (24-29) mmol/L VBG O2 Saturation (70-75) % VBG Base Excess (0-4) mmol/L FiO2 Sodium (137-145) mmol/L Potassium (3.4-5.1) mmol/L Chloride (98-107) mmol/L Carbon Dioxide (22-32) mmol/L BUN (7-17) mg/dL Creatinine (0.52-1.04) mg/dL Estimated GFR (>60) mL/min BUN/Creatinine Ratio (6-22) Glucose (70-100) mg/dL Hemoglobin A1c (4.0-6.0) % Lactate (0.7-2.1) mmol/L Calcium (8.4-10.2) mg/dL Phosphorus (2.5-4.5) mg/dL Magnesium (1.6-2.3) mg/dL Ferritin (11-264) ng/mL Total Bilirubin (0.2-1.3) mg/dL AST (14-36) IU/L ALT (<35) IU/L Alkaline Phosphatase (38-126) U/L Lactate Dehydrogenase (313-618) U/L Total Creatine Kinase 286 H (30-135) U/L CK-MB (CK-2) 2.13 (<2.37) ng/mL CK-MB (CK-2) Rel Index 0.7 L (1.5-5.0) % Troponin I 0.078 H (0.01-0.034) ng/mL C-Reactive Protein (<1.0) mg/dL NT-Pro-B Natriuret Pep (<125) pg/mL Total Protein (6.3-8.2) g/dL Albumin (3.5-5.0) g/dL Globulin (1.7-4.1) g/dL Albumin/Globulin Ratio (1.0-2.8) Procalcitonin (<0.5) ng/mL Urine Color Urine Appearance Urine pH (4.5-8.0) Ur Specific [employer] (1.000-1.035) Urine Protein (Negative) Urine Glucose (UA) (Negative) g/dL Urine Ketones (NEGATIVE) Urine Occult Blood (Negative) Urine Nitrate (Negative) Urine Bilirubin (NEGATIVE) Urine Urobilinogen (0.2) E.U./dL Ur Leukocyte Esterase (NEGATIVE) Urine RBC (0-5/HPF) Urine WBC (0-5/HPF) Urine Bacteria (None) Ur Culture Indicated? U Opiates 300ng/mL cut Negative (Negative) Ur Oxycodone Screen Negative (Negative) Urine Methadone Screen Positive H (Negative) Ur Barbiturates Screen Negative (Negative) U Tricyclic Antidepress Negative (Negative) Ur Phencyclidine Scrn Negative (Negative) Ur Amphetamines Screen Negative (Negative) U Methamphetamines Scrn Negative (Negative) Ur MDMA Scrn (Ecstasy) Negative (Negative) U Benzodiazepines Scrn Negative (Negative) Urine Cocaine Screen Negative (Negative) U Marijuana (THC) Screen Negative (Negative) Ketones (<0.27) mmol/L SARS-CoV-2 (PCR) (Negative) Blood Type Antibody Screen 12/12/20 12/12/20 12/12/20 Range/Units 03:45 03:45 03:45 WBC (4.5-11.0) X10^3/uL RBC (4.0-5.2) X10^6/uL Hgb (12.0-16.0) g/dL Hct (36-46) % MCV (80-100) fL MCH (26-34) PG MCHC (30-36) % RDW (11.6-14.8) % Plt Count (150-400) X10^3/uL Neut % (Auto) (50-75) % Lymph % (Auto) (25-40) % Saline % (Auto) (3-14) % Eos % (Auto) (2-4) % Baso % (Auto) (0-2) % Neut # (Auto) (2788-1774) /uL Lymph # (Auto) (3991-6514) /uL Saline # (Auto) (0-900) /uL Eos # (Auto) (0-450) /uL Baso # (Auto) (0-100) /uL ABG pH (7.35-7.45) ABG pCO2 (35-45) mmHg ABG pO2 (80-100) mmHg ABG HCO3 (22-26) mmol/L ABG Total CO2 (21-31) mmol/L ABG O2 Saturation (95-100) % ABG Base Excess (-2-2) mmol/L VBG pH (7.33-7.43) VBG pCO2 (45-50) mmHg VBG pO2 (35-45) mmHg VBG HCO3 (23-28) mmol/L VBG Total CO2 (24-29) mmol/L VBG O2 Saturation (70-75) % VBG Base Excess (0-4) mmol/L FiO2 Sodium 156 H (137-145) mmol/L Potassium 3.4 (3.4-5.1) mmol/L Chloride 123 H* (98-107) mmol/L Carbon Dioxide 16 L (22-32) mmol/L BUN 44 H (7-17) mg/dL Creatinine 1.59 H (0.52-1.04) mg/dL Estimated GFR 33.6 L (>60) mL/min BUN/Creatinine Ratio 27.7 H (6-22) Glucose 537 H* (70-100) mg/dL Hemoglobin A1c (4.0-6.0) % Lactate 0.9 (0.7-2.1) mmol/L Calcium 8.4 (8.4-10.2) mg/dL Phosphorus (2.5-4.5) mg/dL Magnesium (1.6-2.3) mg/dL Ferritin (11-264) ng/mL Total Bilirubin 0.7 (0.2-1.3) mg/dL AST 54 H (14-36) IU/L ALT 37 H (<35) IU/L Alkaline Phosphatase 85 (38-126) U/L Lactate Dehydrogenase (313-618) U/L Total Creatine Kinase (30-135) U/L CK-MB (CK-2) (<2.37) ng/mL CK-MB (CK-2) Rel Index (1.5-5.0) % Troponin I 0.349 H* (0.01-0.034) ng/mL C-Reactive Protein (<1.0) mg/dL NT-Pro-B Natriuret Pep (<125) pg/mL Total Protein 6.9 (6.3-8.2) g/dL Albumin 3.9 (3.5-5.0) g/dL Globulin 3.0 (1.7-4.1) g/dL Albumin/Globulin Ratio 1.3 (1.0-2.8) Procalcitonin (<0.5) ng/mL Urine Color Urine Appearance Urine pH (4.5-8.0) Ur Specific [employer] [place] (1.000-1.035) Urine Protein (Negative) Urine Glucose (UA) (Negative) g/dL Urine Ketones (NEGATIVE) Urine Occult Blood (Negative) Urine Nitrate (Negative) Urine Bilirubin (NEGATIVE) Urine Urobilinogen (0.2) E.U./dL Ur Leukocyte Esterase (NEGATIVE) Urine RBC (0-5/HPF) Urine WBC (0-5/HPF) Urine Bacteria (None) Ur Culture Indicated? U Opiates 300ng/mL cut (Negative) Ur Oxycodone Screen (Negative) Urine Methadone Screen (Negative) Ur Barbiturates Screen (Negative) U Tricyclic Antidepress (Negative) Ur Phencyclidine Scrn (Negative) Ur Amphetamines Screen (Negative) U Methamphetamines Scrn (Negative) Ur MDMA Scrn (Ecstasy) (Negative) U Benzodiazepines Scrn (Negative) Urine Cocaine Screen (Negative) U Marijuana (THC) Screen (Negative) Ketones (<0.27) mmol/L SARS-CoV-2 (PCR) (Negative) Blood Type Antibody Screen 12/12/20 12/12/20 12/12/20 Range/Units 03:45 03:45 05:16 WBC (4.5-11.0) X10^3/uL RBC (4.0-5.2) X10^6/uL Hgb (12.0-16.0) g/dL Hct (36-46) % MCV (80-100) fL MCH (26-34) PG MCHC (30-36) % RDW (11.6-14.8) % Plt Count (150-400) X10^3/uL Neut % (Auto) (50-75) % Lymph % (Auto) (25-40) % Saline % (Auto) (3-14) % Eos % (Auto) (2-4) % Baso % (Auto) (0-2) % Neut # (Auto) (4858-7690) /uL Lymph # (Auto) (4121-3485) /uL Saline # (Auto) (0-900) /uL Eos # (Auto) (0-450) /uL Baso # (Auto) (0-100) /uL ABG pH 7.45 (7.35-7.45) ABG pCO2 22.8 L* (35-45) mmHg ABG pO2 88 (80-100) mmHg ABG HCO3 16 L (22-26) mmol/L ABG Total CO2 17 L (21-31) mmol/L ABG O2 Saturation 97 (95-100) % ABG Base Excess -8.0 L (-2-2) mmol/L VBG pH (7.33-7.43) VBG pCO2 (45-50) mmHg VBG pO2 (35-45) mmHg VBG HCO3 (23-28) mmol/L VBG Total CO2 (24-29) mmol/L VBG O2 Saturation (70-75) % VBG Base Excess (0-4) mmol/L FiO2 50 Sodium (137-145) mmol/L Potassium (3.4-5.1) mmol/L Chloride (98-107) mmol/L Carbon Dioxide (22-32) mmol/L BUN (7-17) mg/dL Creatinine (0.52-1.04) mg/dL Estimated GFR (>60) mL/min BUN/Creatinine Ratio (6-22) Glucose (70-100) mg/dL Hemoglobin A1c 7.7 H (4.0-6.0) % Lactate (0.7-2.1) mmol/L Calcium (8.4-10.2) mg/dL Phosphorus (2.5-4.5) mg/dL Magnesium (1.6-2.3) mg/dL Ferritin (11-264) ng/mL Total Bilirubin (0.2-1.3) mg/dL AST (14-36) IU/L ALT (<35) IU/L Alkaline Phosphatase (38-126) U/L Lactate Dehydrogenase (313-618) U/L Total Creatine Kinase (30-135) U/L CK-MB (CK-2) (<2.37) ng/mL CK-MB (CK-2) Rel Index (1.5-5.0) % Troponin I (0.01-0.034) ng/mL C-Reactive Protein (<1.0) mg/dL NT-Pro-B Natriuret Pep (<125) pg/mL Total Protein (6.3-8.2) g/dL Albumin (3.5-5.0) g/dL Globulin (1.7-4.1) g/dL Albumin/Globulin Ratio (1.0-2.8) Procalcitonin (<0.5) ng/mL Urine Color Urine Appearance Urine pH (4.5-8.0) Ur Specific [employer] (1.000-1.035) Urine Protein (Negative) Urine Glucose (UA) (Negative) g/dL Urine Ketones (NEGATIVE) Urine Occult Blood (Negative) Urine Nitrate (Negative) Urine Bilirubin (NEGATIVE) Urine Urobilinogen (0.2) E.U./dL Ur Leukocyte Esterase (NEGATIVE) Urine RBC (0-5/HPF) Urine WBC (0-5/HPF) Urine Bacteria (None) Ur Culture Indicated? U Opiates 300ng/mL cut (Negative) Ur Oxycodone Screen (Negative) Urine Methadone Screen (Negative) Ur Barbiturates Screen (Negative) U Tricyclic Antidepress (Negative) Ur Phencyclidine Scrn (Negative) Ur Amphetamines Screen (Negative) U Methamphetamines Scrn (Negative) Ur MDMA Scrn (Ecstasy) (Negative) U Benzodiazepines Scrn (Negative) Urine Cocaine Screen (Negative) U Marijuana (THC) Screen (Negative) Ketones 5.34 H (<0.27) mmol/L SARS-CoV-2 (PCR) (Negative) Blood Type Antibody Screen 12/12/20 12/12/20 12/12/20 Range/Units 07:50 12:30 12:30 WBC (4.5-11.0) X10^3/uL RBC (4.0-5.2) X10^6/uL Hgb (12.0-16.0) g/dL Hct (36-46) % MCV (80-100) fL MCH (26-34) PG MCHC (30-36) % RDW (11.6-14.8) % Plt Count (150-400) X10^3/uL Neut % (Auto) (50-75) % Lymph % (Auto) (25-40) % Saline % (Auto) (3-14) % Eos % (Auto) (2-4) % Baso % (Auto) (0-2) % Neut # (Auto) (5015-6868) /uL Lymph # (Auto) (7312-5291) /uL Saline # (Auto) (0-900) /uL Eos # (Auto) (0-450) /uL Baso # (Auto) (0-100) /uL ABG pH (7.35-7.45) ABG pCO2 (35-45) mmHg ABG pO2 (80-100) mmHg ABG HCO3 (22-26) mmol/L ABG Total CO2 (21-31) mmol/L ABG O2 Saturation (95-100) % ABG Base Excess (-2-2) mmol/L VBG pH (7.33-7.43) VBG pCO2 (45-50) mmHg VBG pO2 (35-45) mmHg VBG HCO3 (23-28) mmol/L VBG Total CO2 (24-29) mmol/L VBG O2 Saturation (70-75) % VBG Base Excess (0-4) mmol/L FiO2 Sodium 157 H 158 H (137-145) mmol/L Potassium 3.2 L 3.5 (3.4-5.1) mmol/L Chloride 125 H* 128 H* (98-107) mmol/L Carbon Dioxide 19 L 21 L (22-32) mmol/L BUN 45 H 43 H (7-17) mg/dL Creatinine 1.66 H 1.49 H (0.52-1.04) mg/dL Estimated GFR 32.0 L 36.2 L (>60) mL/min BUN/Creatinine Ratio 27.1 H 28.9 H (6-22) Glucose 422 H D 211 H D (70-100) mg/dL Hemoglobin A1c (4.0-6.0) % Lactate 1.9 (0.7-2.1) mmol/L Calcium 8.8 8.3 L (8.4-10.2) mg/dL Phosphorus 2.9 (2.5-4.5) mg/dL Magnesium 2.6 H (1.6-2.3) mg/dL Ferritin (11-264) ng/mL Total Bilirubin (0.2-1.3) mg/dL AST (14-36) IU/L ALT (<35) IU/L Alkaline Phosphatase (38-126) U/L Lactate Dehydrogenase (313-618) U/L Total Creatine Kinase (30-135) U/L CK-MB (CK-2) (<2.37) ng/mL CK-MB (CK-2) Rel Index (1.5-5.0) % Troponin I 0.569 H* (0.01-0.034) ng/mL C-Reactive Protein (<1.0) mg/dL NT-Pro-B Natriuret Pep (<125) pg/mL Total Protein (6.3-8.2) g/dL Albumin (3.5-5.0) g/dL Globulin (1.7-4.1) g/dL Albumin/Globulin Ratio (1.0-2.8) Procalcitonin (<0.5) ng/mL Urine Color Urine Appearance Urine pH (4.5-8.0) Ur Specific [employer] (1.000-1.035) Urine Protein (Negative) Urine Glucose (UA) (Negative) g/dL Urine Ketones (NEGATIVE) Urine Occult Blood (Negative) Urine Nitrate (Negative) Urine Bilirubin (NEGATIVE) Urine Urobilinogen (0.2) E.U./dL Ur Leukocyte Esterase (NEGATIVE) Urine RBC (0-5/HPF) Urine WBC (0-5/HPF) Urine Bacteria (None) Ur Culture Indicated? U Opiates 300ng/mL cut (Negative) Ur Oxycodone Screen (Negative) Urine Methadone Screen (Negative) Ur Barbiturates Screen (Negative) U Tricyclic Antidepress (Negative) Ur Phencyclidine Scrn (Negative) Ur Amphetamines Screen (Negative) U Methamphetamines Scrn (Negative) Ur MDMA Scrn (Ecstasy) (Negative) U Benzodiazepines Scrn (Negative) Urine Cocaine Screen (Negative) U Marijuana (THC) Screen (Negative) Ketones (<0.27) mmol/L SARS-CoV-2 (PCR) (Negative) Blood Type Antibody Screen Point of Care Testing Glucose POC 219 Urine Dip Bedside Urine Glucose 250 mg/dl Bedside Urine Bilirubin - Negative Bedside Urine Ketone +/- 5 Urine Specific [employer] 1.015 Bedside Urine Occult Blood +++ Bedside Urine pH 6.0 Bedside Urine Protein ++ 100 Bedside Urine Urobilinogen 0.2 Bedside Urine Nitrite - Negative Bedside Urine Leukocytes - Negative Esterase Point of care testing: Point of Care Testing Glucose POC 219 Urine Dip Bedside Urine Glucose 250 mg/dl Bedside Urine Bilirubin - Negative Bedside Urine Ketone +/- 5 Urine Specific [employer] 1.015 Bedside Urine Occult Blood +++ Bedside Urine pH 6.0 Bedside Urine Protein ++ 100 Bedside Urine Urobilinogen 0.2 Bedside Urine Nitrite - Negative Bedside Urine Leukocytes - Negative Esterase ECG Data Interpretation: Sinus rhythm Ventricular rate 82 First-degree AV block VT interval 234 milliseconds Normal axis LVH Normal QTC Normal QRS No ST T wave changes EKG 2. Time 4:59 a.m.. Sinus tachycardia rate [address] elevation. Critical Care Time <Rahul Esposito DO - Last Filed: 12/12/20 17:50> Critical Care Time Critical Care Time: Yes Total Critical Care Time: 90 Attestation: The high probability of a clinically significant, sudden or life threatening deterioration of the neurologic, respiratory, cardiovascular system(s) required my full and direct attention, intervention and personal management. The aggregate critical care time was 90 minutes. This time is in addition to time spent performing reported procedures but includes the following: [x] Data Review and interpretation [x] Patient assessment and monitoring of vital signs [x] Documentation [x] Medication orders and management Discharge Plan Departure Patient Disposition: Admitted As Inpatient Clinical Impression: COVID-19, Hyperglycemia, Elevated brain natriuretic peptide (BNP) level Altered mental status Qualifiers: Altered mental status type: unspecified Qualified Code(s): R41.82 - Altered mental status, unspecified Admit Date/Time: 12/12/20 13:17 Admit Provider: Valentino Flores
[2020-12-11] MEDS: SODIUM CHLORIDE 0.9% 1,000 ML 1000 ML IV (11:18)
[2020-12-11 11:19] LABS: Lactate (Lactic Acid) 1.8 mmol/L (0.7-2.1)
[2020-12-11] MEDS: VANCOMYCIN 1,000 MG/200 ML PIGGYBACK 200 MG IV (11:19)
[2020-12-11 11:22] LABS: Alanine Aminotransferase 36 IU/L (<35); Albumin 4.6 g/dL (3.5-5.0); Albumin Globulin Ratio 1.5 (1.0-2.8); Alkaline Phosphatase 100 U/L (38-126); Aspartate Aminotransferase 47 IU/L (14-36); Bilirubin Total 0.9 mg/dL (0.2-1.3); Blood Urea Nitrogen 31 mg/dL (7-17); C-Reactive Protein Quant 5.5 mg/dL (<1.0); Calcium 9.1 mg/dL (8.4-10.2); Carbon Dioxide 17 mmol/L (22-32); Chloride 115 mmol/L (98-107); Creatine Kinase 300 U/L (30-135); Estimated Glomerular Filt Rate 48.8 mL/min (>60); Globulin 3.1 g/dL (1.7-4.1); Glucose 460 mg/dL (70-100); HEMOLYSIS < 15 (0-50); Lactate Dehydrogenase 871 U/L (313-618); Potassium 3.6 mmol/L (3.4-5.1); Sodium 149 mmol/L (137-145); Total Protein 7.7 g/dL (6.3-8.2)
[2020-12-11 11:30] LABS: Appearance Urine UA CLEAR; Bilirubin Urine UA NEGATIVE (NEGATIVE); Color Urine UA YELLOW; Glucose Urine UA 3+ g/dL (Negative); Ketones Urine UA 2+ (NEGATIVE); Leukocyte Esterase Urine UA NEGATIVE (NEGATIVE); Nitrite Urine UA NEGATIVE (Negative); Occult Blood Urine UA 1+ (Negative); Protein Urine UA 2+ (Negative); Urobilinogen Urine UA 0.2 E.U./dL (0.2)
[2020-12-11 11:32] LABS: NT-proBNP (BNP-Adult 18+) 8140 pg/mL (<125); Troponin I 0.063 ng/mL (0.01-0.034)
[2020-12-11 11:35] LABS: CKMB % Relative Index 0.7 % (1.5-5.0); Creatine Kinase MB 2.19 ng/mL (<2.37)
[2020-12-11 11:37] LABS: Procalcitonin 0.11 ng/mL (<0.5)
[2020-12-11 11:40] LABS: HCO3 VBG 17 mmol/L (23-28); Oxygen Saturation VBG 76 % (70-75); PCO2 VBG 27.3 mmHg (45-50); PO2 VBG 40 mmHg (35-45); Total CO2 VBG 18 mmol/L (24-29)
--- NOTE | 2020-12-11 11:42 | PC.NURSE ---
At this time I spoke with the of the patient who requests that everything be done for the patient including antibodies and antivirals. I relayed this message to Dr. Esposito. I also informed the patient's of what tests were currently being run at this time and to call back at 1300 for another update.
--- NOTE | 2020-12-11 11:44 | PC.NURSE ---
Patient in depends which clearly old and full of urine and stool to the point of disintegration. We changed bed linens and provided anoop care. Anoop area is reddened. This was prior to insertion of catheter.
--- NOTE | 2020-12-11 11:49 | PC.NURSE ---
reports she has been responsive only to pain, not forming words or alert for 3 full days.
[2020-12-11 11:53] LABS: COVID19 -Nasal RAPID POSITIVE (Negative)
[2020-12-11 11:54] LABS: Ketones (Beta-Hydroxybutyrate) 5.12 mmol/L (<0.27)
[2020-12-11 11:55] LABS: Ferritin 613 ng/mL (11-264)
[2020-12-11 11:56] LABS: UR Morphine/Opiate cutoff 300 Negative (Negative); Ur Creatinine Normal (Normal); Ur Specific Gravity Normal (Normal); Urine Cocaine Negative (Negative); Urine Tetrahydrocannabinol Negative (Negative); Urine pH Normal (Normal)
[2020-12-11 11:57] LABS: Urine Amphetamines Negative (Negative); Urine Barbiturates Negative (Negative); Urine MDMA Negative (Negative); Urine Methamphetamines Negative (Negative); Urine Phencyclidine Negative (Negative)
[2020-12-11 11:58] LABS: Urine Benzodiazepines Negative (Negative); Urine Methadone Positive (Negative); Urine Oxycodone Negative (Negative); Urine Tricyclic Antidepressant Negative (Negative)
--- NOTE | 2020-12-11 11:58 | DI.MRI.S_ITS ---
PROCEDURE: MR HEAD/BRAIN WO/W CON INDICATIONS: mass seen on CT scan rads rec MRI TECHNIQUE: Noncontrast axial T1 spin echo, axial T2 fast spin echo, sagittal and axial FLAIR, coronal T2 fast spin echo, axial gradient echo, axial diffusion and ADC through the brain. After the administration of contrast, axial and coronal 3D VIBE or T1 spin echo with fat saturation through the brain. COMPARISON: [facility], CR, XR CHEST 1V, 12/11/2020, 11:16. [facility], CT, CT HEAD/BRAIN WO CON, 12/11/2020, 11:22. FINDINGS: Image quality: Limited by motion artifact CSF Spaces: Basal cisterns are patent. No extra-axial fluid collections. Ventricles are normal in size and shape. Brain: Multifocal patchy FLAIR hyperintensities noted particularly involving the occipital cortex with mild gyral swelling, but also involving the subcortical white matter, deep frontoparietal white matter along the [place] watershed, as well as minimally involving the bilateral superior frontal gyral cortex. Additional hyperintensity involves the mid central fish. Trace patchy enhancement noted in the involved cortex. No midline shift. No intracranial bleeds or masses. Minimal diffusion hyperintensity probably reflects artifactual T2 shine through. Normal intravascular flow voids are present. Skull and face: Calvarial marrow is normal in signal. Orbits appear normal. Sinuses: Bilateral maxillary sinus mucosal thickening present. IMPRESSION: Cortical and subcortical white matter hyperintensities with vague enhancement and posterior occipital predominance. Differential is quite broad and includes posterior reversible encephalopathy syndrome, small vessel vasculitis, and multifocal encephalitis or hypoxic-ischemic encephalopathy. Less likely, if the diffusion signal is real, Creutzfeldt-Desmond disease could be considered. Approved by: Gildardo Burger M.D. on 12/11/2020 at 15:24
[2020-12-11 12:04] LABS: Bacteria Urine Occasional (0-1); Culture Indicated Urine Cult Not Indicated; RBC Urine 0-1/HPF (0-5/HPF); WBC Urine 0-1/HPF (0-5/HPF)
[2020-12-11 12:18] LABS: COVID19 - ADMIT (NP swab/PCR) POSITIVE (Negative)
[2020-12-11] MEDS: DEXAMETHASONE 10 MG/ML VIAL IV (12:25)
[2020-12-11] MEDS: cefTRIAXone 1,000 MG in SODIUM CHLORIDE 0.9% 100 ML 200 ML IV (12:25)
[2020-12-11] MEDS: ASPIRIN 300 MG SUPP PR (12:28)
[2020-12-11] MEDS: NALOXONE 1 MG/ML SYRINGE 2 MG NASAL (12:29)
[2020-12-11] MEDS: SODIUM CHLORIDE 0.9% 1,000 ML 125 ML IV (12:30)
[2020-12-11] MEDS: REMDESIVIR 200 MG in SODIUM CHLORIDE 0.9% 210 ML 250 ML IV (12:50)
[2020-12-11] MEDS: LORazepam 2 MG/ML INJ 0.5 MG IV (14:52)
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
[2020-12-11 15:46] LABS: Creatine Kinase 286 U/L (30-135)
[2020-12-11 15:59] LABS: Troponin I 0.078 ng/mL (0.01-0.034)
[2020-12-11 16:01] LABS: CKMB % Relative Index 0.7 % (1.5-5.0); Creatine Kinase MB 2.13 ng/mL (<2.37)
[2020-12-11] MEDS: NITROGLYCERIN OINT 1 INCH/GM OINT...G. 0.5 INCH TOP (17:32)
--- NOTE | 2020-12-11 19:00 | PC.NURSE ---
Pt RA sats 89-90%. Pt opened eyes when name was called. When asked to cough/deep breath, pt states okay but does not actually cough or deep breathe. Placed on 2L and sats increased to 95%. MD notified.
[2020-12-11] MEDS: FUROSEMIDE 40 MG/4 ML VIAL IV (19:26)
[2020-12-11] MEDS: LABETALOL 20 MG/4 ML SYRINGE 5 MG IV (20:11)
--- NOTE | 2020-12-11 20:57 | PC.NURSE ---
Updated spouse and son Sigifredo on pt current condition. Let them know that MD has spoken with neurology about pt MRI and is waiting for call back. Family expressed that they would like to be called even in the middle of the night for any updates on plan. NOC shift nurses aware.
--- NOTE | 2020-12-11 22:48 | PC.NURSE ---
2248: Pt having a seizure/posturing. MD notified. RT called for increased respirations/work of breathing. Ativan given x 2. 2300: Pt with more seizure activity. MD/RT/RNx2 still in room. Ativan given and also diazepam. Heated high flow initiated. 2310: Pt work of breathing decreased, RR 30. Sats 97%. Seizure pads placed. 0020: Increased respiratory rate/heart rate. MD notified. Orders for diazepam received. construction contractor getting keppra dose ready. 0035: RR 32, HR 97. Pt appears more comfortable. Keppra infusing. 0100: Updated spouse via phone call to change in pt status.
[2020-12-11] MEDS: LORazepam 2 MG/ML INJ 1 MG IV (22:50)
[2020-12-11] MEDS: LORazepam 2 MG/ML INJ ×2 (22:55→23:00)
[2020-12-11] MEDS: diazePAM 10 MG/2 ML SYRINGE (23:02)
[2020-12-12] VITALS (61 sets, daily range): BP systolic 115–187; BP diastolic 65–141; PULSE 89–126; RESP 15–54; TEMP 38.3–40; O2SAT 93–98; BMI 25.1
--- NOTE | 2020-12-12 00:25 | RT ---
PT IS RECEIVING ANOTHER DOSE OF ATIVAN BY RN FOR INCREASED RR.
[2020-12-12] MEDS: diazePAM 10 MG/2 ML SYRINGE 5 MG IV (00:27)
[2020-12-12] MEDS: levETIRAcetam 1,000 MG in SODIUM CHLORIDE 0.9% 100 ML 440 ML IV (00:47)
[2020-12-12] MEDS: PHENobarbital 65 MG/ML VIAL IV (02:58)
[2020-12-12] MEDS: ACETAMINOPHEN 650 MG SUPP PR ×3 (03:08→22:08)
[2020-12-12 04:02] LABS: Add Manual Diff / Slide Review NO; Basophils Absolute Auto 0 /uL (0-100); Basophils Percent Auto 0.3 % (0-2); Eosinophils Absolute Auto 0 /uL (0-450); Hematocrit 41.7 % (36-46); Hemoglobin 13.9 g/dL (12.0-16.0); Lymphocytes Absolute Auto 700 /uL (1100-4500); Mean Corpuscular HGB Conc 33.4 % (30-36); Mean Corpuscular Hemoglobin 30.4 PG (26-34); Mean Corpuscular Volume 90.9 fL (80-100); Monocytes Absolute Auto 900 /uL (0-900); Monocytes Percent Auto 17.7 % (3-14); Neutrophils Absolute Auto 3400 /uL (1500-7000); Platelet Count 110 X10^3/uL (150-400); Red Blood Cell Count 4.58 X10^6/uL (4.0-5.2); White Blood Cell Count 4.9 X10^3/uL (4.5-11.0)
[2020-12-12 04:09] LABS: Lactate (Lactic Acid) 0.9 mmol/L (0.7-2.1)
[2020-12-12 04:10] LABS: Alanine Aminotransferase 37 IU/L (<35); Albumin 3.9 g/dL (3.5-5.0); Albumin Globulin Ratio 1.3 (1.0-2.8); Alkaline Phosphatase 85 U/L (38-126); Aspartate Aminotransferase 54 IU/L (14-36); BUN Creatinine Ratio 27.7 (6-22); Bilirubin Total 0.7 mg/dL (0.2-1.3); Blood Urea Nitrogen 44 mg/dL (7-17); Calcium 8.4 mg/dL (8.4-10.2); Carbon Dioxide 16 mmol/L (22-32); Estimated Glomerular Filt Rate 33.6 mL/min (>60); HEMOLYSIS 28 (0-50); Potassium 3.4 mmol/L (3.4-5.1); Sodium 156 mmol/L (137-145); Total Protein 6.9 g/dL (6.3-8.2)
[2020-12-12 04:46] LABS: Troponin I 0.349 ng/mL (0.01-0.034)
[2020-12-12 04:49] LABS: Chloride 123 mmol/L (98-107)
[2020-12-12 04:50] LABS: Glucose 537 mg/dL (70-100)
[2020-12-12] MEDS: ACETAMINOPHEN IV 1,000 MG/100 ML VIAL 400 MG IV (05:10)
[2020-12-12] MEDS: INSULIN REGULAR 100 UNIT/ML 3 ML VIAL 15 UNIT IV (05:10)
[2020-12-12 05:23] LABS: pH ABG 7.45 (7.35-7.45)
[2020-12-12 05:24] LABS: PCO2 ABG 22.8 mmHg (35-45); PO2 ABG 88 mmHg (80-100)
[2020-12-12 05:25] LABS: Fractionated Inspired Oxygen 50; HCO3 ABG 16 mmol/L (22-26); Oxygen Saturation ABG 97 % (95-100); TCO2 ABG 17 mmol/L (21-31)
[2020-12-12] MEDS: FUROSEMIDE 40 MG/4 ML VIAL IV (05:30)
[2020-12-12 05:48] LABS: Ketones (Beta-Hydroxybutyrate) 5.34 mmol/L (<0.27)
[2020-12-12] MEDS: SODIUM CHLORIDE 0.45% 1,000 ML 125 ML IV (06:16)
[2020-12-12] MEDS: POTASSIUM CHLORIDE IN WATER 10 MEQ/100 ML PIGGYBACK 100 MEQ IV ×4 (06:17→10:03)
[2020-12-12] MEDS: INSULIN DRIP PREMIX 100 UNIT/100 ML PLAST..BAG 6 UNIT IV (06:17)
[2020-12-12] MEDS: diazePAM 10 MG/2 ML SYRINGE (07:22)
--- NOTE | 2020-12-12 07:27 | DI.RAD.S_ITS ---
PROCEDURE: XR CHEST 1V INDICATIONS: covid PNA TECHNIQUE: One view of the chest was acquired. COMPARISON: [facility], CR, XR CHEST 1V, 12/11/2020, 11:16. FINDINGS: Surgical changes and devices: Stimulator device is noted. Lungs and pleura: Lead is noted overlying the left hemithorax limiting evaluation. Persistent appearance of mild interstitial prominence. Mediastinum: Mediastinal contours appear normal. Heart size is enlarged. Bones and chest wall: No suspicious bony lesions. Overlying soft tissues appear unremarkable. IMPRESSION: Limited evaluation secondary to overlying lead. Persistent appearance of mild interstitial prominence, slightly less prominent. Dictated by: Lauryn Hernandez M.D. on 12/12/2020 at 7:49 Approved by: Lauryn Hernandez M.D. on 12/12/2020 at 7:50
--- NOTE | 2020-12-12 07:30 | PC.NURSE ---
This RN assumed care of pt at 0700 and took bedside report from TIFFANY Chris with two EDMD's also present. Pt is lying supine at this time, with HOB elevated. No eye or verbal response to stimulus. Pt does move extremities during MD attempt to gain central line access. Axillary temp monitoring is elevated, acetaminophen has been administered. Will continue to monitor. Pt is tachypneic, does maintain good O2 sats on high flow of 51% at 50L/min. BP stable at this time. Skin intact, hot, dry. Personal belongings -shirt and jewelry in bag at the bedside.
[2020-12-12 08:17] LABS: BUN Creatinine Ratio 27.1 (6-22); Blood Urea Nitrogen 45 mg/dL (7-17); Calcium 8.8 mg/dL (8.4-10.2); Carbon Dioxide 19 mmol/L (22-32); Glucose 422 mg/dL (70-100); HEMOLYSIS < 15 (0-50); Magnesium 2.6 mg/dL (1.6-2.3); Phosphorous 2.9 mg/dL (2.5-4.5); Potassium 3.2 mmol/L (3.4-5.1); Sodium 157 mmol/L (137-145)
[2020-12-12 08:23] LABS: Chloride 125 mmol/L (98-107)
--- NOTE | 2020-12-12 09:30 | PC.NURSE ---
Pt rolled from supine to left side lying, supported by pillows, for RT and skin support. Cooling blanket applied due to continued elevated temp. Pt is non-responsive to pressure, pupils 2mm bilaterally, skin dry, hot, intact. Abdomen soft, nondistended. Continues to make clear, yellow urine.Tachypnea persists but with stable saturations, RT at bedside to adjust high flow to 40% and 60L/min to support her respiratory presentation.
[2020-12-12] MEDS: VANCOMYCIN 1,500 MG/300 ML PIGGYBACK 200 MG IV (10:05)
--- NOTE | 2020-12-12 10:31 | PC.NURSE ---
Provider aware of GCS, pt maintaining airway.
--- NOTE | 2020-12-12 10:40 | PC.NURSE ---
Pt rolled from left side lying to right side lying. Her WOB continues, with abdominal breathing and accessory muscle use, but she appears to be less strained in her overall appearance; face has relaxed and mouth breathing has decreased. Sats 96% on 40% and 60L/min high flow. She remains nonresponsive to sound, stimulus, pressure, but does intermittently turn her head or move an extremity. When lifted, her arm falls to the bed with no resistance.
--- NOTE | 2020-12-12 10:52 | PC.NURSE ---
Catheter changed out for temp sensing ybarra.
[2020-12-12] MEDS: REMDESIVIR 100 MG in SODIUM CHLORIDE 0.9% 230 ML 250 ML IV (11:51)
[2020-12-12 12:06] LABS: Hemoglobin A1C% w Est Avg Glu 7.7 % (4.0-6.0)
[2020-12-12] MEDS: cefTRIAXone 1,000 MG in SODIUM CHLORIDE 0.9% 100 ML 200 ML IV (12:09)
[2020-12-12] MEDS: DEXAMETHASONE 10 MG/ML VIAL 6 MG IV (12:10)
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
--- NOTE | 2020-12-12 12:52 | PC.NURSE ---
Pt repositioned for skin care. Her accessory muscle use and increased WOB persists, though respirations have become more shallow and weak. Her sats have decreased from consistently 94-96% to 90%. Per hospitalist and EDMD's conversations with the pt's family, she is to receive supportive care but is DNR/DNI. Treatment team aware and in agreement with this plan. RT at bedside to adjust high flow settings.
--- NOTE | 2020-12-12 13:20 | PC.NURSE ---
Report called to Lb, acute care RN
[2020-12-12 13:21] LABS: Lactate (Lactic Acid) 1.9 mmol/L (0.7-2.1)
[2020-12-12 13:23] LABS: BUN Creatinine Ratio 28.9 (6-22); Blood Urea Nitrogen 43 mg/dL (7-17); Calcium 8.3 mg/dL (8.4-10.2); Carbon Dioxide 21 mmol/L (22-32); Estimated Glomerular Filt Rate 36.2 mL/min (>60); Glucose 211 mg/dL (70-100); Sodium 158 mmol/L (137-145)
[2020-12-12 13:26] LABS: HEMOLYSIS 76 (0-50); Potassium 3.5 mmol/L (3.4-5.1)
[2020-12-12 13:29] LABS: Chloride 128 mmol/L (98-107)
--- NOTE | 2020-12-12 13:30 | PC.NURSE ---
Family called by this RN to have conversations with their mother before she is transferred to the ICU. They understand her status and are on their way to [place]. The pt's will join her at the bedside once she is settled in her new room, then comfort care will be initiated. Family aware and in agreement with this plan. Admitting RN aware of family updates and that the will come to the bedside.
[2020-12-12 13:36] LABS: Troponin I 0.569 ng/mL (0.01-0.034)
--- NOTE | 2020-12-12 14:06 | PC.NURSE ---
Pt transferred to the ICU by this RN and RT, on 15L NRB. Sats 96% during transport. Transfer of care at ICU bedside to TIFFANY Asher.
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
[2020-12-12] MEDS: SCOPOLAMINE 1 PATCH TOP (14:39)
[2020-12-12] MEDS: MORPHINE 2 MG/ML INJ IV (14:40)
--- NOTE | 2020-12-12 15:10 | PC.NURSE ---
Pt admitted to rm 230 from ED at 1354 on NRB. Pt is nonverbal, not following commands, but does moan with deep tactile stimuli. Pt's allowed to visit due to limited interventions/comfort care. Updated pt/spouse on plan of care, available interventions to promote comfort. He verbalizes understanding. Applied scop patch to right ear for upper airway gurgling, morphine for tachypnea/labored breathing. Attempted to provide oral care as lips are dry/cracked but pt moans and purses lip. Pt's is tearful and is requesting that pt be kept comfortable and requests not to prolong suffering. is concerned about dry mouth and the bands of the NRB cutting into pt's face. Removed O2 and left on RA. Call light in easy reach, bed alarm on, suction set up, seizure precautions in place.
[2020-12-12] MEDS: MORPHINE 2 MG/ML INJ 4 MG IV ×2 (16:54→18:30)
[2020-12-12] MEDS: POLYVINYL ALCOHOL DROPS 1 DROPS EYE-BOTH (18:31)
[2020-12-12] MEDS: ATROPINE 1% OPHTH 2 DROPS SL (18:31)
[2020-12-12] MEDS: MORPHINE 4 MG/ML INJ IV ×4 (19:23→22:09)
--- NOTE | 2020-12-12 22:46 | PC.NURSE ---
End of shift note: Pt has received MS 4 mg approx q1hr for RR >40, grimacing. Tylenol supp given x1 for temp>101.6. at bedside, requesting that we do all possible so that she doesnt suffer. Turned and repositioned q hr and frequent oral care done. Atropine drops x1 for oral secretions. Lynn cath with 800ml urine drainage.
[2020-12-13] MEDS: SODIUM CHLORIDE 0.9% FLUSH 10 ML IV ×3 (00:17→06:24)
[2020-12-13] MEDS: SODIUM CHLORIDE 0.9% 250 ML 21 ML IV (00:18)
[2020-12-13] MEDS: MORPHINE 4 MG/ML INJ IV ×3 (00:18→04:48)
[2020-12-13 01:00] VITALS: PULSE 109; RESP 32; TEMP 37.4; O2SAT 81
[2020-12-13] MEDS: LORazepam 2 MG/ML INJ 1 MG IV ×5 (02:20→16:29)
[2020-12-13] MEDS: POLYVINYL ALCOHOL DROPS 1 DROPS EYE-BOTH (02:56)
[2020-12-13] MEDS: ATROPINE 1% OPHTH 2 DROPS SL (02:56)
[2020-12-13] MEDS: MORPHINE 50 MG in DEXTROSE 5 % IN WATER 45 ML 5 ML IV (07:59)
--- NOTE | 2020-12-13 08:14 | PC.NURSE ---
Addendum entered by Leighann Do R.N. 12/13/20 13:03: Pt. remains unresponsive. Morphine gtt titrated and PRN Ativan administered according to tachypnea, tachycardia, and facial grimacing. Original Note: Report received, care assumed 0730. Providing comfort care. Not using central monitoring. Spot oxygen saturation check 80%. Patient tachypneic. Facial expression is relaxed. at bedside and agrees that she seems relaxed. She is unresponsive with occasional posturing of upper extremities. Morphine gtt started as ordered at 5mg/hr.
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
--- NOTE | 2020-12-13 11:45 | PM.PN.1 ---
Subjective Subjective Date Patient Seen: 12/13/20 Time Patient Seen: 08:00 Interval history: This morning patient appears comfortable. She is unresponsive. She is hypoxemic at 80% and tachypneic Exam Vital Signs (past 8 hours): Oxygen Delivery Method Non -Rebreather Oxygen Flow Rate 0 Narrative Exam Narrative: GEN: no acute distress, she appears comfortable, tachypneic, shallow breathing Objective Labs Result Diagrams: 12/12/20 03:45 12/12/20 12:30 Labs: Laboratory Results - last 24 hr 12/12/20 12/12/20 12/12/20 03:45 12:30 12:30 Sodium 158 H Potassium 3.5 Chloride 128 H* Carbon Dioxide 21 L BUN 43 H Creatinine 1.49 H Estimated GFR 36.2 L BUN/Creatinine Ratio 28.9 H Glucose 211 H D Hemoglobin A1c 7.7 H Lactate 1.9 Calcium 8.3 L Troponin I 0.569 H* Nasal Screen MRSA (PCR) 12/12/20 14:00 Sodium Potassium Chloride Carbon Dioxide BUN Creatinine Estimated GFR BUN/Creatinine Ratio Glucose Hemoglobin A1c Lactate Calcium Troponin I Nasal Screen MRSA (PCR) Negative for [facility] Medical History Diabetes DVT (deep venous thrombosis) Nasal sinus tumor Social History household members: spouse Smoking Status: Current every day smoker Assessment & Plan Assessment & Plan narrative: Ms. Perkins is a 55W who presented critically ill with acute respiratory failure from COVID pneumonia, MORALES, encephalopathy who after long discussion with family decided on comfort care. She remains comfortable as discussed with family which are respecting patient's wishes about no life support or ventilatior. Family at bedside. 1. Acute respiratory failure from COVID pneumonia -has severe case COVID pneumonia with respiratory failure on high flow oxygen -did receive IV remdesivir, and IV dexamethasone -worsened significantly and not protecting airway, and tachypneic, with high work of breathing -at that time discussion was had with family, son, Sigifredo, and , Sigifredo, and it was indicated that patient would not want to be on machines for life preservation -they agreed she should be comfortable, given her multiorgan failure and extremely grave prognosis 2. MORALES -creatinine rising to 1.6 from 1.1 on admission -secondary to acute illness 3. Acute GI bleed -likely from multiorgan failure -no need for transfusion 4. NSTEMI -probable from acute illness, but cannot rule out plaque rupture -can not be anticoagulated given GI bleed, and too unstable for cardiac intervention 5. Metabolic encephalopathy -etiology not completely clear -could be from acute illnes from COVID -also with unclear findings with hyperintensities on brain MRI -did not improve with narcan 6. Seizure, acute -witnessed in ED -given phenobarb, ativan keppra and no further seizure activity witnessed 7. Cortical hyperintensities -unclear etiology -may be brain malignancy, vs pres, vs cjd, vs vasculitis, vs encephalitis -did not improve with antibiotics 8. Thrombocytopenia -secondary to acute illness 9. Hyperglycemia -possibly DKA, was on IV insulin gtt to help improve her blood sugars CODE: DNR/DNI IVF: none Proxy: no signed POLST/DPOA, proxy is spouse and son, both named Sigifredo Perkins, they make decisions with four other children that patient has Patient had extremely critical illness. Prognosis was grave. Discussed at length with son Sigifredo, and Sigifredo. Explained her situation with multiorgan failure, severe covid pneumonia, both GI bleed, and NSTEMI. Discussed about intubation, for which family agreed is not within patient's wishes. Patient continued to critically worsen and her appeared imminent, and family did not want patient to suffer and focus was made on prioritizing patient's comfort. Time Spent With Patient Critical Care time: I spent a total of [] minutes of critical care time on this patient's care today; this time is exclusive of procedural time.
[2020-12-13 14:53] VITALS: RESP 30
--- NOTE | 2020-12-13 15:35 | PC.NURSE ---
Addendum entered by Caterina Calloway R.N. 12/13/20 19:00: 1730 Received a call from patient's daughter Deedee very concerned that we are not doing everything that we can for patient according to her wishes. Daughter stated that she had spoken to Neurology at [facility] and they had told her to have the hospitalist call them to discuss a transfer. After talking to the daughter for 15 minutes, this nurse was able to get off of the phone and tell Dr. Flores and charge nurse TIFFANY Perez what had transpired during the conversation. Dr. Flores and this nurse discussed with pts Mr Perkins the plans for the patients care and states that Comfort Care is what his would have wanted. He agrees that this hospital is doing everything according to the plan of care for his . Dr Flores will call daughter Deedee and explain the wishes of the DPOA, Mr Perkins. 1840 came out of the room to state he believes his has passed. This nurse checked all vital signs and listened for heartbeat and found none. Time of 1839, Dr. Flores and Charge Nurse updated and confirmed. Mr Perkins to contact family members and discuss plans for home. Original Note: Evening shift note: Received report from Keyla ALLEN, pt resting quietly in bed with at bedside. Providing comfort care only, no monitoring, pulse Ox reads 72-73%, no signs of struggling, expression and body relaxed, Morphine gtt infusing at 7mL/hr, pt is mostly unresponsive with occasional movement of upper extremities. Will administer ativan as needed for signs of discomfort.
[2020-12-13 16:08] VITALS: PULSE 144; RESP 28; O2SAT 78
[2020-12-13] MEDS: MORPHINE 50 MG in DEXTROSE 5 % IN WATER 45 ML 7 ML IV (16:29)
--- NOTE | 2020-12-13 19:51 | P.DN_ITS ---
Discharge Summary History of Illness Narrative: Ms. Perkins is a 55W with PMH that is documented as diabetes, previous brain cancer s/p surgery, chronic pain, there is question of lupus. Unfortunately patient is critically ill and unable to provide history. Per other providers she apparently was not fully immunized against COVID. Her recently tested positive. She has been altered for the past 3-4 days prior to admission. She initially presented to the ED with significant altered mental status. In the ED workup was done. She was found to have vital signs with tachycardia and tachypnea. She eventually developed uncontrolled fever >103, and respiratory distress with hypoxemia requiring high flow oxygen. Her labs were notable for a normal white count of 3.5, plts 97, creatinine initially 1.15 worsened to 1.66. Sodium 149 worsened to 158, co2 17, glucose 460, ldh 871, trop 0.063->0.078->0.349->0.569. She was also found to have hemoocult positive stool. BNP 8140. COVID positive. Chest xray showed atypical infiltrate. CT head shows nodular density in the left occipital lobe. MRI cortical and subcortical white matter hyperdensities with vague enhancement and posterior occipital. Neurology at was consulted and said that differential included possible creutzfeld- mari, vasculitis, encephalitis. Her mental status worsened and she was oberseved by the ED physician to have a seizure, and was given keppra and benzos. She was diagnosed with COVID pneumonia. She was started on IV remdesivir and IV dexamethasone. Given the severity of her illness she was started on broad spectrum antibiotics with vanc/ceftriaxone. Cardiology was consulted due to her NSTEMI and agreed that she could not get anticoagulated for other intervention due to her bleed and her severe illness. For her hyperglycemia, she was started on an insulin drip. For her mental status she did get narcan as she had methado ne in her urine with no effect. For her fever, she continued to have fevers despite tylenol therapy. No history was obtainable to me as patient was in isolation due to severe COVID, and completely unresponsive due to critical illness. Hospital Course Date of Admission: 12/12/20 13:17 Consults: 12/11/20 14:08 Consult to [employer] - [employer]ician Stat Comment: 12/12/20 11:57 Consult After Hours PICC Line RN Stat Comment: Discharge Diagnosis: 1. Acute respiratory failure from COVID pneumonia 2. MORALES 3. Acute GI bleed 4. NSTEMI 5. Metabolic encephalopathy 6. Acute seizure 7. Cortical hyperintensities 8. Thrombocytopenia 9. Hyperglycemia 10. Chronic pain on methadone 11. Lupus Hospital Course: Ms. Perkins presented to the hospital with with critical illness and was found to have multiple medical problems as listed above. Please see H and P for initial presentation in the ED and initial management. Discussion was had with multiple family members including , Sigifredo. He was informed how gravely ill she was in respiratory failure even while on high flow oxygen with severe work of breathing and compromised mental status and not safely protecting her airway with poor gag reflex. With discussion with her spouse and confirmed with other family, it was noted that intubation was not within goals of care of the patient per her . She was in severe respiratory distress, and despite treatments she continued to deteriorate. After discussion with he wished for patient to pass as comfortably as possible. Medications for pain and anxiety were ordered to reduce any distress. She on 12/13 at 6:40pm with her at bedside. Objective Labs Result Diagrams: 12/12/20 03:45 12/12/20 12:30
== END 2020-12-13 22:35 | disposition expired | DRG 177 ==
LOC: ED 12-12 13:15 → ICU 12-12 13:18
PROVIDERS: Emergency Medicine; Admitting Provider Internal Medicine; Emergency Provider Emergency Medicine; Referring Provider Emergency Medicine; Visit Provider Internal Medicine
DX: U07.1 COVID-19 (principal); J12.82 Pneumonia due to coronavirus disease 2019; J96.00 Acute respiratory failure, unspecified whether with hypoxia or hypercapnia; I21.4 Non-ST elevation (NSTEMI) myocardial infarction; G93.41 Metabolic encephalopathy; N17.9 Acute kidney failure, unspecified; K92.2 Gastrointestinal hemorrhage, unspecified; E11.65 Type 2 diabetes mellitus with hyperglycemia; R56.9 Unspecified convulsions; D69.6 Thrombocytopenia, unspecified; F17.200 Nicotine dependence, unspecified, uncomplicated; G93.89 Other specified disorders of brain; Z51.5 Encounter for palliative care
CPT/HCPCS: 36415; 36600; 70450; 70553; 71045; 80048; 80053; 80305; 81001; 81003; 82009; 82550; 82553; 82728; 82805; 82962; 83036; 83605; 83615; 83735; 83880; 84100; 84145; 84484; 85025; 86140; 86850; 86900; 86901; 87040; 87635; 87797; 93005; 96361; 96365; 96366; 96367; 96368; 96375; 96376; 99285; 99291; 99292; C9803; J0131; J0696; J1100; J1940; J1953; J2060; J2270; J2310; J2560; J3360; J7050